=== PATIENT | female | born 1945 | race Caucasian/White ===

== ENCOUNTER 2021-05-21 09:00 | Inpatient (IN) | payer MEDICARE, SELFPAY ==
[2021-05-21] VITALS (8 sets, daily range): BP systolic 139–169; BP diastolic 62–128; PULSE 72–105; RESP 18; TEMP 36.4–37.2; O2SAT 94–99; BMI 52.2; BMI 51.5
--- NOTE | 2021-05-21 09:16 | ED.VIS.GI ---
HPI HPI - GI History of Present Illness Chief Complaint: Abd Pain Detail of Chief Complaint: Abdominal pain for several days Informant: patient Nausea/Vomiting/Emesis GI Symptom: Negative for Nausea and Vomiting Narrative Narrative: Patient presents to the emergency department with complaint of abdominal pain that she has had for several days. Patient describes upper abdomen pain. She denies vomiting or diarrhea. Have a bladder prolapse or uterine prolapse however the nurse did not evaluate the situation. Patient is a very poor historian but thinks she may have history of bladder prolapse. Patient has not had any fevers. She denies chest pain or shortness of breath. She denies dysuria, urgency, or frequency. [facility] Medical History (Updated 05/21/21 @ 13:[address] Wilma Rea, ) A-fib Atrial flutter Edema GERD (gastroesophageal reflux disease) Hyperlipemia Hypothyroid Obesity Sleep apnea Allergy/AdvReac Type Severity Reaction Status Date / Time amoxicillin [From Augmentin] Allergy NEEDS Verified 05/21/21 09:14 FOLLOW-UP atorvastatin [From Lipitor] Allergy NEEDS Verified 05/21/21 09:14 FOLLOW-UP azithromycin [From Zithromax] Allergy NEEDS Verified 05/21/21 09:14 FOLLOW-UP benzonatate Allergy NEEDS Verified 05/21/21 09:14 [From Tessalon Perles] FOLLOW-UP clavulanic acid Allergy NEEDS Verified 05/21/21 09:14 [From Augmentin] FOLLOW-UP simvastatin [From Zocor] Allergy NEEDS Verified 05/21/21 09:14 FOLLOW-UP Social History Smoking Status: Unknown if ever smoked ROS ROS ED Constitutional Constitutional ED: Reports systems reviewed and no addt'l complaints, except as documented; Denies body ache(s), change in weight or chills Eyes Eyes: Denies acute decrease in peripheral vision, change in vision, double vision or loss of vision ENT ENT ED: Reports none; Denies ear pain, lip swelling, loss taste/smell, neck pain, otalgia or sore throat Cardiovascular Cardiovascular: Reports none; Denies abdominal pain, chest pain with activity, leg edema, lightheadedness, palpitations, rapid heart rate or syncope Respiratory/Chest Respiratory/Chest: Reports none; Denies change in mental status, dry cough, dyspnea, hemoptysis, shortness of breath at rest or shortness of breath with exertion Gastrointestinal Gastrointestinal: Reports none and abdominal pain; Denies change in stool character, diarrhea, hematemesis, hematochezia, melena, rectal bleeding or vomiting Genitourinary Genitourinary ED: Reports none; Denies abdominal discomfort, anuria, dysuria, genital pain or polyuria Musculoskeletal Musculoskeletal: Reports none; Denies arthralgias, back pain, difficulty walking, extremity pain, muscle weakness or myalgias Integumentary Reports none; Denies abscess or rash Neurologic Neurologic: Reports none; Denies abnormal gait, confusion, focal weakness, frequent falls, headache(s), loss of vision, numbness, paresthesias, radicular pain, vertigo or weakness Psychiatric Psychiatric: Reports systems reviewed and no addt'l complaints, except as documented and none; Denies behavioral changes, confusion, difficulty concentrating, hallucinations, suicidal ideation, tactile hallucinations or visual hallucinations Endocrine Endocrinology: Denies none, cold intolerance, excessive sweating, fatigue or heat intolerance Hematologic/Lymphatic Hematologic/Lymphatic: Reports none; Denies anemia, easy bleeding or easy bruising Allergic/Immunologic Allergic/Immunologic ED: Denies as per HPI, none, lip swelling, mouth swelling, throat swelling, tongue swelling or hives EXAM Physical Exam Const Vital Signs: 05/21/21 09:02 05/21/21 11:46 05/21/21 13:11 Temperature 97.5 F L Temperature Source Oral Pulse Rate 105 H Respiratory Rate 18 Blood Pressure 139/66 H 150/82 H 154/98 H Blood Pressure Mean 90 104 116 Pulse Ox 99 Oxygen Delivery Method Room Air Room Air Positive well nourished and well developed General Appearance ED: well developed and NAD HEENT Reports TM's clear and moist mucous membranes normocephalic and atraumatic; Negative for trauma or tenderness Tympanic Membrane ED: Yes TM's clear Eyes PERRL and EOMs intact bilaterally General Eye ED: Negative for pale conjunctiva or scleral icterus Neck no lymphadenopathy, supple and no JVD General: Negative for tenderness Chest Wall inspection of chest normal and palpation of chest normal Chest: Negative for tenderness Resp normal respiratory effort and clear to auscultation bilaterally Effort and Inspection: Negative for respiratory distress or pain with movement Auscultation: Negative for rhonchi, wheezes or diminished lung sounds Cardio regular rate, regular rhythm, S1 normal heart sound, S2 normal heart sound and no murmurs Peripheral Pulses: pulses 2+ throughout GI normal to inspection, nondistended, normoactive bowel sounds, soft to palpation, non-distended and no masses GI Narrative: Patient morbidly obese with large body habitus. She has tenderness to palpation over the epigastric region and right upper quadrant with guarding. She has a positive Varma sign. There is no rebound or rigidity noted. No tenderness over the lower abdomen noted. Back/Spine no CVA tenderness and no thoracic nor lumbar tenderness Extremity normal to inspection General Extremety ED: Negative for edema General Extremity: Negative for edema Neuro oriented x3, CN's II-XII intact bilaterally, no sensory deficits noted and gait normal Sensorium / Orientation: awake, alert, oriented to person, oriented to place and oriented to time Motor Exam: strength 5/5 throughout and strength abnormal Psych mental status grossly normal Skin no rashes or lesions noted and no wounds MDM MDM MDM Narrative Medical decision making narrative: IV line established on arrival. Patient was medicated morphine and Zofran. Labs were unremarkable. CT scan of the abdomen pelvis with IV and p.o. contrast showed a small bowel obstruction with questionable intussusception. I discussed case with general surgeon on-call Dr. Rios who will admit patient and asked that we consult medicine for medical management. I ordered NG to low intermittent suction. Discussed case with hospitalist who will see patient for medical management. Lab Data Attestation: I reviewed the patient's lab results. Labs: Laboratory Results - last 24 hr 05/21/21 05/21/21 05/21/21 09:50 09:50 10:40 WBC 9.7 RBC 4.36 Hgb 13.6 Hct 43.2 MCV 99.1 H MCH 31.2 MCHC 31.5 L RDW Std Deviation 49.0 H RDW Coeff of Cally 13.3 Plt Count 185 MPV 10.0 Immature Gran % (Auto) 0.400 Neut % (Auto) 86.3 H Lymph % (Auto) 8.1 L [place] % (Auto) 4.5 Eos % (Auto) 0.5 Baso % (Auto) 0.2 Absolute Neuts (auto) 8.3 H Absolute Lymphs (auto) 0.78 L Nucleated RBC % 0 Sodium 140 Potassium 3.9 Chloride 109 H Carbon Dioxide 22.0 Anion Gap 9 BUN 16 Creatinine 0.93 Estim Creat Clear Calc 38.12 Est GFR (MDRD) Af Amer 76 Est GFR (MDRD) Non-Af 63 BUN/Creatinine Ratio 17.2 Glucose 129 H Lactic Acid Cancelled Calcium 9.3 Total Bilirubin 0.80 AST 16 ALT 15 Alkaline Phosphatase 114 Total Protein 7.2 Albumin 3.2 Globulin 4.0 Albumin/Globulin Ratio 0.8 L Lipase 60 L Urine Color Urine Clarity Urine pH Ur Specific [place] Urine Protein Urine Glucose (UA) Urine Ketones Urine Occult Blood Urine Nitrite Urine Bilirubin Urine Urobilinogen Ur Leukocyte Esterase Urine RBC Urine WBC Ur Squamous Epith Cells Urine Bacteria Urine Mucus 05/21/21 05/21/21 11:10 11:25 WBC RBC Hgb Hct MCV MCH MCHC RDW Std Deviation RDW Coeff of Cally Plt Count MPV Immature Gran % (Auto) Neut % (Auto) Lymph % (Auto) [place] % (Auto) Eos % (Auto) Baso % (Auto) Absolute Neuts (auto) Absolute Lymphs (auto) Nucleated RBC % Sodium Potassium Chloride Carbon Dioxide Anion Gap BUN Creatinine Estim Creat Clear Calc Est GFR (MDRD) Af Amer Est GFR (MDRD) Non-Af BUN/Creatinine Ratio Glucose Lactic Acid 1.5 Calcium Total Bilirubin AST ALT Alkaline Phosphatase Total Protein Albumin Globulin Albumin/Globulin Ratio Lipase Urine Color Yellow Urine Clarity Sl. Cloudy Urine pH 7.0 Ur Specific [place] 1.015 Urine Protein 30 H Urine Glucose (UA) Normal Urine Ketones 50 H Urine Occult Blood Negative Urine Nitrite Negative Urine Bilirubin Negative Urine Urobilinogen 1 H Ur Leukocyte Esterase 25 H Urine RBC 0 SEEN Urine WBC 0-5 SEEN Ur Squamous Epith Cells 0-5 SEEN Urine Bacteria 0 SEEN Urine Mucus 0 SEEN Radiography Diagnostic Testing: Clinical Impression(s) from Imaging Studies Abdomen/Pelvis CT 05/21/21 12:45 IMPRESSION: Small bowel obstruction with the transition point in the mid jejunum. Questionable intussusception. Multiple small gallstones. Small amount of perihepatic fluid and fluid in the pelvis. Electronically Signed: Jewel Cooper MD at 13:18 EST , Service support , Discharge Plan Triage Chief Complaint: Abd Pain ED Provider: Wilma Rea Dx/Rx/DC Orders Clinical Impression: Complete small bowel obstruction, Abdominal pain Primary Care Provider: Aldair Blankenship Referrals: Aldair Blankenship DO [Primary Care Provider] - Disposition Disposition: Acute Care Hospital [facility]
[2021-05-21] MEDS: Ondansetron 4 MG/2 ML Vial IV ×2 (09:51→15:19)
[2021-05-21] MEDS: Morphine 4 MG/ML Syringe IV ×3 (09:52→14:19)
[2021-05-21] MEDS: 0.9% Normal Saline 1,000 ML 125 ML IV ×3 (09:52→23:10)
[2021-05-21 10:19] LABS: Absolute Lymphocyte Count 0.78 X10^3/uL (0.83-4.51); Absolute Neutrophil Count 8.3 X10^3/uL (2.0-7.7); Basophil# 0.02 X10^3/uL; Basophil% 0.2 % (0-1); Eosinophil# 0.05 X10^3/uL; Eosinophils% 0.5 % (0-5); Hematocrit 43.2 % (37-47); Hemoglobin 13.6 g/dL (12.0-15.0); Lymphocyte # 0.78 X10^3/ul (0.83-4.51); Lymphocyte % 8.1 % (19-41); Mean Corp Hgb Conc 31.5 g/dL (32-36); Mean Corpuscular Hgb 31.2 pg (27.0-32.0); Mean Corpuscular Volume 99.1 fL (81-99); Monocyte# 0.43 X10^3/uL; Monocyte% 4.5 % (0-10); NRBC Flagged by Analyzer 0 % (0-5); Neutrophil # 8.34 X10^3/uL (2.7-7.7); Neutrophil % 86.3 % (47-70); Platelet Count 185 K/mm3 (150-450); RBC Distribution Width CV 13.3 % (11.6-14.6); Red Blood Count 4.36 M/mm3 (4.2-5.4); White Blood Count 9.7 K/mm3 (4.4-11.0)
[2021-05-21 10:44] LABS: ALB/GLOB Ratio 0.8 RATIO (0.9-2.4); AST(SGOT) 16 U/L (15-37); Alanine Aminotransfer ALT/SGPT 15 U/L (13-56); Albumin, Serum 3.2 g/dL (3.2-5.0); Alkaline Phosphatase 114 U/L (45-117); Anion Gap 9 (5-15); BUN 16 mg/dL (7-18); BUN/Creat Ratio 17.2 RATIO (10-20); Calcium,Total 9.3 mg/dL (8.5-10.1); Chloride 109 mmol/L (98-107); Creatinine, Serum 0.93 mg/dL (0.55-1.02); EST Glomerular Filtration Rate 63 mL/min (>60); Est Glom Filt Rate - Afr Amer 76 mL/min (>60); Estimated Creatinine Clearance 38.12 ml/min; Glucose 129 mg/dL (74-106); Lipase 60 U/L (73-393); Potassium 3.9 mmol/L (3.5-5.1); Protein, Total 7.2 g/dL (6.4-8.2); Sodium Level 140 mmol/L (136-145)
[2021-05-21 11:16] LABS: Bacteria 0 SEEN /hpf (None Seen); Mucous, Urine 0 SEEN /hpf (<or=2+); Red Blood Cells-Urine 0 SEEN /hpf (0-5)
[2021-05-21 11:29] LABS: Color, Urine Yellow (Yellow); Glucose, Dipstick Normal (Normal); Ketone-Dipstick 50 mg/dl (Negative); Leukocyte Esterase-Dipstick 25 /ul (Negative); Nitrite-Dipstick Negative (Negative); Occult Blood-Urine Negative /ul (Negative); Protein-Dipstick 30 mg/dl (Negative); Specific Gravity, Urine 1.015 (1.002-1.030); Urine Bilirubin Dipstick Negative (Negative); Urine Clarity Sl. Cloudy (Clear); Urine Urobilinogen 1 mg/dl (Normal)
[2021-05-21 11:35] LABS: Squamous Epithelial Cells - UA 0-5 SEEN /hpf (5-10); White Blood Cells 0-5 SEEN /hpf (0-5)
[2021-05-21 11:53] LABS: Lactic Acid 1.5 mmol/L (0.4-1.9)
--- NOTE | 2021-05-21 12:45 | CT_ITS ---
STUDY: CT ABDOMEN AND PELVIS WITH CONTRAST REASON FOR EXAM: Female, 76 years old. Abdominal pain RADIATION DOSAGE (If Supplied By Facility): CTDIvol = ( 20.55 ) mGy, DLP = ( 1623.37 ) mGycm TECHNIQUE: Transaxial images were obtained from the dome of the diaphragm to the symphysis pubis with oral contrast. Oral and amp; IV Gastrografin and amp; 100mL Isovue-300 was administered. Sagittal and coronal images were reconstructed. Individualized dose optimization techniques were used for this CT. COMPARISON: None. FINDINGS: Mild degree of increased linear markings at the lung bases suggestive of atelectasis. Coronary artery calcification. Normal liver. Small amount of the perihepatic fluid. There are multiple small gallstones. Small cystic nodules are seen in the anterior superior aspect of the spleen. There is diffuse atrophy of the pancreas. Normal bilateral adrenal glands. Normal right kidney. Normal left kidney. There is a small hiatal hernia. There are dilated loops of the small intestine with a non-distended colon consistent with a small bowel obstruction. The transition point is at the level of the mid jejunal level. Questionable intussusception at that site. There are multiple colonic diverticula consistent with diverticulosis. The appendix is visualized and appears normal. There is diffuse atherosclerotic calcification of the abdominal aorta and its major visceral branches, without a demonstrated aneurysm. Normal inferior vena cava. Normal retroperitoneum. Normal urinary bladder. There is a moderate-sized umbilical hernia containing fat. No bowel is seen within the herniation. There are diffuse degenerative changes of the visualized lumbar spine. CT/Abdomen/Pelvis WITH Contrast IMPRESSION: Small bowel obstruction with the transition point in the mid jejunum. Questionable intussusception. Multiple small gallstones. Small amount of perihepatic fluid and fluid in the pelvis. Electronically Signed: Jewel Cooper MD at 13:18 EST , Service support ,
--- NOTE | 2021-05-21 14:10 | NURSING ---
MED SURG [facility], ABD PAIN
--- NOTE | 2021-05-21 14:15 | RAD_ITS ---
STUDY: X-RAY - ABDOMEN/PELVIS REASON FOR EXAM: Female, 76 years old. NG Insertion TECHNIQUE: AP supine and decubitus views of the abdomen and pelvis. COMPARISON: None. FINDINGS: The nasogastric tube is coiled in the esophagus. RAD/Abdomen Single View (Portable) IMPRESSION: The nasogastric tube is coiled in the esophagus. Electronically Signed: Jewel Cooper MD at 14:45 EST , Service support ,
--- NOTE | 2021-05-21 14:40 | RAD_ITS ---
STUDY: X-RAY CHEST REASON FOR EXAM: Female, 76 years old. NG PLACEMENT TECHNIQUE: Single AP portable view of the chest. COMPARISON: Comparison is made with prior study done earlier today. FINDINGS: The tip of the nasogastric tube is below the left hemidiaphragm. Mild degree of increased markings at the lung bases suggestive of bibasilar atelectasis. There is no demonstrated pleural abnormality. Normal size heart. Normal mediastinum and leo. Normal visualized pulmonary arteries. There is atherosclerotic calcification of the aortic arch with tortuosity. There are diffuse degenerative changes of the visualized thoracic spine. Normal visualized ribs, clavicles, and shoulders. There is no demonstrated abnormality of the visualized soft tissue structures of the upper abdomen. RAD/Chest 1 View (Portable) IMPRESSION: The tip of the nasogastric tube is below the left hemidiaphragm. Electronically Signed: Jewel Cooper MD at 14:56 EST , Service support ,
--- NOTE | 2021-05-21 14:45 | RAD_ITS ---
STUDY: X-RAY - ABDOMEN/PELVIS REASON FOR EXAM: Female, 76 years old. NG PLACEMENT TECHNIQUE: Single AP view of the abdomen / pelvis. COMPARISON: Comparison is made with prior study done earlier today. FINDINGS: The tip of the nasogastric tube is in the body of the stomach. RAD/Abdomen Single View (Portable) IMPRESSION: The tip of the nasogastric tube is in the body of the stomach. Electronically Signed: Jewel Cooper MD at 14:57 EST , Service support ,
--- NOTE | 2021-05-21 14:49 | ED.RN ---
THIS NURSE LEFT A MESSAGE FOR PT SON NAVARRO AT [phone]
--- NOTE | 2021-05-21 14:53 | PN.HOSP_ITS ---
Documented by User: Saima Bean NP-Shukri 05/21/21 15:57 Subjective Subjective Patient seen and examined at the request of Dr. Rios for medical management. Patient admitted with a small bowel obstruction. Patient has a history of dementia and is unable to provide medical history. Patient transferred here from [facility] with incomplete med list. Objective Data Objective Data Vital Signs: Vital Signs Temp Pulse Resp BP Pulse Ox 98.9 F 72 18 158/62 H 94 05/21/21 14:14 05/21/21 14:14 05/21/21 14:14 05/21/21 14:14 05/21/21 14:14 Oxygen Delivery Method Room Air Weight: 267 lb 6.731 oz Body Mass Index (BMI) 52.2 Lab / Micro Data Result Diagrams: 05/21/21 09:50 05/21/21 09:50 Labs: Laboratory Results - last 24 hr 05/21/21 09:50: WBC 9.7, RBC 4.36, Hgb 13.6, Hct 43.2, MCV 99.1 H, MCH 31.2, MCHC 31.5 L, RDW Std Deviation 49.0 H, RDW Coeff of Cally 13.3, Plt Count 185, MPV 10.0, Immature Gran % (Auto) 0.400, Neut % (Auto) 86.3 H, Lymph % (Auto) 8.1 L, [place] % (Auto) 4.5, Eos % (Auto) 0.5, Baso % (Auto) 0.2, Absolute Neuts (auto) 8.3 H, Absolute Lymphs (auto) 0.78 L, Nucleated RBC % 0 05/21/21 09:50: Sodium 140, Potassium 3.9, Chloride 109 H, Carbon Dioxide 22.0, Anion Gap 9, BUN 16, Creatinine 0.93, Estim Creat Clear Calc 38.12, Est GFR (MDRD) Af Amer 76, Est GFR (MDRD) Non-Af 63, BUN/Creatinine Ratio 17.2, Glucose 129 H, Calcium 9.3, Total Bilirubin 0.80, AST 16, ALT 15, Alkaline Phosphatase 114, Total Protein 7.2, Albumin 3.2, Globulin 4.0, Albumin/Globulin Ratio 0.8 L, Lipase 60 L 05/21/21 10:40: Lactic Acid Cancelled 05/21/21 11:10: Urine Color Yellow, Urine Clarity Sl. Cloudy, Urine pH 7.0, Ur Specific [place] 1.015, Urine Protein 30 H, Urine Glucose (UA) Normal, Urine Ketones 50 H, Urine Occult Blood Negative, Urine Nitrite Negative, Urine Bilirubin Negative, Urine Urobilinogen 1 H, Ur Leukocyte Esterase 25 H, Urine RBC 0 SEEN, Urine WBC 0-5 SEEN, Ur Squamous Epith Cells 0-5 SEEN, Urine Bacteria 0 SEEN, Urine Mucus 0 SEEN 05/21/21 11:25: Lactic Acid 1.5 Radiography Diagnostic Testing: Radiology Impression Abdomen/Pelvis CT 05/21/21 12:45 IMPRESSION: Small bowel obstruction with the transition point in the mid jejunum. Questionable intussusception. Multiple small gallstones. Small amount of perihepatic fluid and fluid in the pelvis. Electronically Signed: Jewel Cooper MD at 13:18 EST , Service support , KUB X-Ray 05/21/21 14:15 IMPRESSION: The nasogastric tube is coiled in the esophagus. Electronically Signed: Jewel Cooper MD at 14:45 EST , Service support , Physical Exam Const alert and no apparent distress General Appearance: anxious Orientation / Consciousness: oriented to person and confused HEENT head/scalp atraumatic Head and Scalp: normocephalic Eyes conjunctivae normal and no scleral icterus Neck no lymphadenopathy and supple Resp normal respiratory effort, normal air movement and clear to auscultation bilaterally Effort and Inspection: able to speak in complete sentences and symmetric chest movement Cardio regular rate, regular rhythm, S1 normal heart sound and S2 normal heart sound GI non-distended GI Narrative: NG to left nares in place, draining Auscultation: hypoactive bowel sounds Palpation: tender RUQ Extremity normal to inspection, full ROM and no clubbing, cyanosis or edema Peripheral Pulses: Yes pulses 2+ throughout Skin no rashes or lesions noted, no wounds and skin turgor normal Neuro moves all extremities, no focal motor deficits and no sensory deficits noted Sensorium / Orientation: awake, alert and oriented to person Psych Mood & Affect: anxious Assessment & Plan Assessment/Plan (1) Complete small bowel obstruction: PLAN: 1. Complete small bowel obstruction -Being managed by Dr. Rios of general surgery -NG placed in ER, maintain -Labs unremarkable -Pain medication regimen ordered per surgery Patient is thought to have a history of atrial fibrillation, hypertension and hyperlipidemia however patient was sent from [facility] with incomplete medical records. [facility] called multiple times by myself as well as ER staff with no response. Patient has dementia and is unable to provide medical history or medication list at this time. Once we are aware of patient's medical history we can order appropriate medications IV until patient is able to resume p.o. intake. Surgical risk calculator will also be complete once medical history is completely obtained. DVT prophylaxis-SCDs This patient was seen by DREW Infante under the supervision of Dr. Kimbrough. Documented by User: Dr. Cain Kimbrough MD 05/21/21 16:25 Objective Data Lab / Micro Data Result Diagrams: 05/21/21 09:50 05/21/21 09:50 Charges/Coding Addendum Addendum: Dr. Kimbrough: I personally reviewed the chart and examined the patient, and agree with the above findings. 76-year-old female who lives in a assisted secondary to dementia presents to the hospital with abdominal pain. Unfortunately given her dementia she is unable to elaborate on this and were unable to gather any more history. Has had multiple attempts at contacting her assisted and we have been unable to reach her nurse. We were able to get an updated med list that demonstrates that she is on Plavix, will Lasix, since throwing, lisinopril, metoprolol, Coumadin indicating history of A. fib, possible cardiac stent. Given the fact that CT scan she appears to have a mid jejunal transition point with a small bowel obstruction, she will be n.p.o. We will gently hydrate her and can place her on IV metoprolol, once she is admitted, to control her heart rate but given the need for possible surgery will hold her anticoagulation. Visit Charges Inpatient E&M: 50944 Subs Hosp L3
--- NOTE | 2021-05-21 15:37 | ED.RN ---
pt. son mary anne calls in updated on pt. condition and that she was being admitted. states sounds good ill call in, in the morning
--- NOTE | 2021-05-21 18:13 | HP.PCM_ITS ---
HPI - General General Date of Admission: 05/21/21 HPI Rigoberto ARGUETA, is a 76 F who presents To [facility] from [facility] with complaints of abdominal pain. History is extremely limited given that the patient has underlying dementia. Unfortunately there are no contacts listed to seek additional information. ER notable findings include normal white count but presence of a left shift. Lactic acid is within normal limits. CT imaging shows evidence of a small bowel obstruction with a transition zone in the mid jejunum. There is also possible suggestion of small bowel intussusception. [facility] Medical History (Updated 05/21/21 @ 18:[address] Ramy Rios MD) A-fib Atrial flutter Edema GERD (gastroesophageal reflux disease) Hyperlipemia Hypothyroid Obesity Sleep apnea Home Medications acetaminophen 1,000 mg PO TID 05/21/21 [History Last Taken 05/21/21] clopidogrel [Plavix] 75 mg PO DAILY 05/21/21 [History Last Taken 05/21/21] fluticasone propionate [Flonase Allergy Relief] 2 spray INTRANASAL DAILY 05/21/21 [History Last Taken 05/21/21] furosemide 20 mg PO DAILY 05/21/21 [History Last Taken 05/21/21] levothyroxine 100 mcg PO DAILY 05/21/21 [History Last Taken 05/21/21] lisinopril 10 mg PO DAILY 05/21/21 [History Last Taken 05/21/21] melatonin 3 mg PO QHS 05/21/21 [History Last Taken 05/20/21] memantine 10 mg PO BID 05/21/21 [History Last Taken 05/21/21] metoprolol tartrate 75 mg PO BID 05/21/21 [History Last Taken 05/21/21] mirabegron [Myrbetriq] 25 mg PO DAILY 05/21/21 [History Last Taken 05/21/21] potassium chloride 10 meq PO BID 05/21/21 [History Last Taken 05/21/21] warfarin [Coumadin] 2.5 mg PO QHS 05/21/21 [History Last Taken 05/20/21] Allergy/AdvReac Type Severity Reaction Status Date / Time amoxicillin [From Augmentin] Allergy NEEDS Verified 05/21/21 09:14 FOLLOW-UP atorvastatin [From Lipitor] Allergy NEEDS Verified 05/21/21 09:14 FOLLOW-UP azithromycin [From Zithromax] Allergy NEEDS Verified 05/21/21 09:14 FOLLOW-UP benzonatate Allergy NEEDS Verified 05/21/21 09:14 [From Tessalon Perles] FOLLOW-UP clavulanic acid Allergy NEEDS Verified 05/21/21 09:14 [From Augmentin] FOLLOW-UP simvastatin [From Zocor] Allergy NEEDS Verified 05/21/21 09:14 FOLLOW-UP Social History Smoking Status: Unknown if ever smoked Vital Signs Vital Signs Vital Signs: 05/21/21 09:02 05/21/21 11:46 05/21/21 13:11 Temperature 97.5 F L Temperature Source Oral Pulse Rate 105 H Respiratory Rate 18 Blood Pressure 139/66 H 150/82 H 154/98 H Blood Pressure Mean 90 104 116 Pulse Ox 99 Oxygen Delivery Method Room Air Room Air 05/21/21 13:58 05/21/21 14:14 05/21/21 15:19 Temperature 98.9 F 98.9 F Temperature Source Temporal Temporal Pulse Rate 76 72 Respiratory Rate 18 18 Blood Pressure 155/98 H 158/62 H 145/95 H Blood Pressure Mean 117 94 111 Pulse Ox 97 94 97 Oxygen Delivery Method Room Air Room Air Room Air Weight Weight: 267 lb 6.731 oz Body Mass Index (BMI) 52.2 Physical Exam Const alert Constitutional Narrative: In mild distress from nasogastric tube and abdominal discomfort. HEENT HEENT Narrative: Nasogastric tube inserted in the left nare with mild oozing around the tube. GI GI Narrative: Morbidly obese. Nondistended. Infraumbilical midline laparotomy incision scar. No evidence of hernia. Patient's abdomen is soft and only minimally tender with deep palpation. Nasogastric tube stomach contents and appears to be functioning appropriately with suction set to low intermittent wall suction. Results Lab / Micro Data Result Diagrams: 05/21/21 09:50 05/21/21 09:50 Labs: Laboratory Results - last 24 hr 05/21/21 09:50: WBC 9.7, RBC 4.36, Hgb 13.6, Hct 43.2, MCV 99.1 H, MCH 31.2, MCHC 31.5 L, RDW Std Deviation 49.0 H, RDW Coeff of Cally 13.3, Plt Count 185, MPV 10.0, Immature Gran % (Auto) 0.400, Neut % (Auto) 86.3 H, Lymph % (Auto) 8.1 L, [place] % (Auto) 4.5, Eos % (Auto) 0.5, Baso % (Auto) 0.2, Absolute Neuts (auto) 8.3 H, Absolute Lymphs (auto) 0.78 L, Nucleated RBC % 0 05/21/21 09:50: Sodium 140, Potassium 3.9, Chloride 109 H, Carbon Dioxide 22.0, Anion Gap 9, BUN 16, Creatinine 0.93, Estim Creat Clear Calc 38.12, Est GFR (MDRD) Af Amer 76, Est GFR (MDRD) Non-Af 63, BUN/Creatinine Ratio 17.2, Glucose 129 H, Calcium 9.3, Total Bilirubin 0.80, AST 16, ALT 15, Alkaline Phosphatase 114, Total Protein 7.2, Albumin 3.2, Globulin 4.0, Albumin/Globulin Ratio 0.8 L, Lipase 60 L 05/21/21 10:40: Lactic Acid Cancelled 05/21/21 11:10: Urine Color Yellow, Urine Clarity Sl. Cloudy, Urine pH 7.0, Ur Specific [place] 1.015, Urine Protein 30 H, Urine Glucose (UA) Normal, Urine Ketones 50 H, Urine Occult Blood Negative, Urine Nitrite Negative, Urine Bilirubin Negative, Urine Urobilinogen 1 H, Ur Leukocyte Esterase 25 H, Urine RBC 0 SEEN, Urine WBC 0-5 SEEN, Ur Squamous Epith Cells 0-5 SEEN, Urine Bacteria 0 SEEN, Urine Mucus 0 SEEN 05/21/21 11:25: Lactic Acid 1.5 Radiology Impression Abdomen/Pelvis CT 05/21/21 12:45 IMPRESSION: Small bowel obstruction with the transition point in the mid jejunum. Questionable intussusception. Multiple small gallstones. Small amount of perihepatic fluid and fluid in the pelvis. Electronically Signed: Jewel Cooper MD at 13:18 EST , Service support , KUB X-Ray 05/21/21 14:15 IMPRESSION: The nasogastric tube is coiled in the esophagus. Electronically Signed: Jewel Cooper MD at 14:45 EST , Service support , Chest X-Ray 05/21/21 14:40 IMPRESSION: The tip of the nasogastric tube is below the left hemidiaphragm. Electronically Signed: Jewel Cooper MD at 14:56 EST , Service support , KUB X-Ray 05/21/21 14:45 IMPRESSION: The tip of the nasogastric tube is in the body of the stomach. Electronically Signed: Jewel Cooper MD at 14:57 EST , Service support , Assessment & Plan Assessment/Plan (1) Small bowel obstruction: PLAN: A 76-year-old female with complex medical history who presents from a nursing facility for abdominal pain. History is severely limited by her dementia. CT is concerning for a small bowel obstruction with relative transition zone in the mid jejunum. Nasogastric tube has been placed with output of gastric contents. Patient's exam is generally reassuring with only mild tenderness to palpation. Aside from a left shift, her laboratory values were also within normal limits. Considering these labs and her exam, I find no cause to pursue emergent operative intervention. I would like to pursue a conservative course at this point and obtain more information if possible. It is my understanding patient only receives her care from [facility], but was unable to be seen there due to diversion. Patient will be admitted to me with medicine consulting for her comorbidities. Neuro: As needed IV analgesics Pulm/CV: Patient should be kept on aspiration precautions with head of bed elevated at least 45 degrees given nasogastric tube and inability to speak for herself. Monitor closely for history of sleep apnea. Telemetry for history of A. fib. FEN/GI: Strict n.p.o. with nasogastric tube to low intermittent wall suction. Plan for a.m. KUB and possible small bowel follow-through tomorrow. Heme/ID: Trend daily labs Endo: No current issues but will have to monitor blood sugars while n.p.o. Proph: SCDs Dispo: Admit to inpatient Charges/Coding Visit Charges Inpatient E&M: 67205 Init Hosp L2
--- NOTE | 2021-05-21 19:33 | NURSING ---
Patient arrived by bed at 1920, moved to bed and assessed.
--- NOTE | 2021-05-21 20:13 | PCS.PANDOC ---
PANDEMIC DOCUMENTATION INITIATED: Date: 05/21/2021 Time:
[2021-05-21] MEDS: HYDROmorphone 0.5 MG/0.5 ML SYRINGE IV (20:57)
[2021-05-21] MEDS: 0.9% Saline Lock 10 ML Syringe IV (20:57)
--- NOTE | 2021-05-21 22:34 | NURSING ---
spoke with [facility] and pt has not received her flu shot yet she was on list to get it, has been ordered for pt here.
[2021-05-21] MEDS: Nystatin Powder 15gm Bottle 1 APPLIC TOPICAL (23:10)
[2021-05-21] MEDS: Menthol/Lanolin/Calamine/Znox 113 GM Tube 1 APPLIC TOPICAL (23:11)
[2021-05-22] VITALS (34 sets, daily range): BP systolic 117–175; BP diastolic 62–104; PULSE 108–150; RESP 14–27; TEMP 36.9–37.3; O2SAT 93–100
[2021-05-22 06:21] LABS: Absolute Lymphocyte Count 0.57 X10^3/uL (0.83-4.51); Absolute Neutrophil Count 9.7 X10^3/uL (2.0-7.7); Basophil# 0.02 X10^3/uL; Basophil% 0.2 % (0-1); Hematocrit 45.7 % (37-47); Hemoglobin 15.2 g/dL (12.0-15.0); Lymphocyte # 0.57 X10^3/ul (0.83-4.51); Lymphocyte % 5.3 % (19-41); Mean Corp Hgb Conc 33.3 g/dL (32-36); Mean Corpuscular Volume 96.2 fL (81-99); Mean Platelet Vol. 10.2 fl (6.2-12.0); Monocyte# 0.52 X10^3/uL; Monocyte% 4.8 % (0-10); NRBC Flagged by Analyzer 0 % (0-5); Neutrophil # 9.65 X10^3/uL (2.7-7.7); Neutrophil % 89.3 % (47-70); POSITIVE DIFFERENTIAL YES; Platelet Count 236 K/mm3 (150-450); RBC Distribution Width CV 13.7 % (11.6-14.6); RBC Distribution Width SD 48.7 fl (35.1-43.9); Red Blood Count 4.75 M/mm3 (4.2-5.4); White Blood Count 10.8 K/mm3 (4.4-11.0)
[2021-05-22 06:29] LABS: Differential Indicated SCAN CRITERIA MET
[2021-05-22 06:34] LABS: International Normalized Ratio 1.9; Prothrombin Time (Protime)PT. 21.1 SECONDS (11.7-14.9)
[2021-05-22 06:41] LABS: Differential Comment SCANNED
[2021-05-22 06:51] LABS: Anion Gap 9 (5-15); BUN 13 mg/dL (7-18); BUN/Creat Ratio 14.8 RATIO (10-20); Calcium,Total 9.1 mg/dL (8.5-10.1); Chloride 111 mmol/L (98-107); Creatinine, Serum 0.88 mg/dL (0.55-1.02); EST Glomerular Filtration Rate 67 mL/min (>60); Est Glom Filt Rate - Afr Amer 81 mL/min (>60); Estimated Creatinine Clearance 105.36 ml/min; Glucose 161 mg/dL (74-106); Potassium 3.8 mmol/L (3.5-5.1); Sodium Level 142 mmol/L (136-145)
--- NOTE | 2021-05-22 07:00 | RAD_ITS ---
STUDY: X-RAY - ABDOMEN/PELVIS REASON FOR EXAM: Female, 76 years old. Follow-up small bowel obstruction TECHNIQUE: Single AP view of the abdomen / pelvis. COMPARISON: Comparison is made with prior study of 05/21/2021. FINDINGS: A nasogastric tube is seen with the tip in the stomach. There is less small bowel dilatation at this time. Gas and fecal material are seen in the colon. The visualized liver, spleen and kidneys are grossly normal in size and morphology. Normal soft tissue structures. There are diffuse degenerative changes of the visualized lumbar spine. RAD/Abdomen Single View IMPRESSION: There is less small bowel dilatation at this time. Gas and fecal material is seen in the colon. Electronically Signed: Jewel Cooper MD at 11:58 EST , Service support ,
[2021-05-22] MEDS: 0.9% Normal Saline 1,000 ML 125 ML IV ×3 (07:02→21:05)
--- NOTE | 2021-05-22 07:41 | EKG12_ITS ---
Test Reason : TACHYCARDIA Blood Pressure : / mmHG Vent. Rate : 134 BPM Atrial Rate : 138 BPM P-R Int : 000 ms QRS Dur : 080 ms QT Int : 318 ms P-R-T Axes : 000 003 231 degrees QTc Int : 474 ms Atrial fibrillation with premature ventricular or aberrantly conducted complexes Abnormal ECG No previous ECGs available Confirmed by SOFIE TIRADO, USHA ([id number]), manuscript editor BRISSA HUSSEIN ([id number]) on 05/23/2021 7:55:15 AM Referred By: GRAHAM Confirmed By:USHA CARRIZALES MD
--- NOTE | 2021-05-22 07:53 | PCM.PN.SRG ---
Subjective Subjective Patient seen and examined during AM rounds. She is found sleeping when I arrived room. However when she awakened she denies any significant discomfort. She states she is resting well. She denies any gas or bowel movement overnight. Nursing reports they did have to administer 1 dose of as needed pain medication overnight but otherwise there were no acute events. Patient reevaluated in the p.m. appears to be completely asymptomatic from her tachyarrhythmia. She initially had some dysfunction of her nasogastric tube but once this was corrected she is without complaints and just seems rather lethargic today. Objective Data Objective Data Vital Signs: Vital Signs Temp Pulse Resp BP Pulse Ox 99.1 F 140 H 16 145/69 H 94 05/22/21 07:43 05/22/21 07:43 05/22/21 07:43 05/22/21 07:43 05/22/21 07:43 Oxygen Delivery Method Room Air Weight: 262 lb 5.601 oz Body Mass Index (BMI) 51.5 Intake & Output: Intake and Output for Last 24 Hours 05/20/21 05/21/21 05/22/21 23:59 23:59 23:59 Intake Total 1514.58 / 1514.58 993.33 / 993.33 Output Total 150 / 150 Balance 1514.58 / 1514.58 843.33 / 843.33 Lab / Micro Data Result Diagrams: 05/22/21 05:25 05/22/21 05:25 Labs: Laboratory Results - last 24 hr 05/21/21 09:50: WBC 9.7, RBC 4.36, Hgb 13.6, Hct 43.2, MCV 99.1 H, MCH 31.2, MCHC 31.5 L, RDW Std Deviation 49.0 H, RDW Coeff of Cally 13.3, Plt Count 185, MPV 10.0, Immature Gran % (Auto) 0.400, Neut % (Auto) 86.3 H, Lymph % (Auto) 8.1 L, [place] % (Auto) 4.5, Eos % (Auto) 0.5, Baso % (Auto) 0.2, Absolute Neuts (auto) 8.3 H, Absolute Lymphs (auto) 0.78 L, Nucleated RBC % 0 05/21/21 09:50: Sodium 140, Potassium 3.9, Chloride 109 H, Carbon Dioxide 22.0, Anion Gap 9, BUN 16, Creatinine 0.93, Estim Creat Clear Calc 38.12, Est GFR (MDRD) Af Amer 76, Est GFR (MDRD) Non-Af 63, BUN/Creatinine Ratio 17.2, Glucose 129 H, Calcium 9.3, Total Bilirubin 0.80, AST 16, ALT 15, Alkaline Phosphatase 114, Total Protein 7.2, Albumin 3.2, Globulin 4.0, Albumin/Globulin Ratio 0.8 L, Lipase 60 L 05/21/21 10:40: Lactic Acid Cancelled 05/21/21 11:10: Urine Color Yellow, Urine Clarity Sl. Cloudy, Urine pH 7.0, Ur Specific [place] 1.015, Urine Protein 30 H, Urine Glucose (UA) Normal, Urine Ketones 50 H, Urine Occult Blood Negative, Urine Nitrite Negative, Urine Bilirubin Negative, Urine Urobilinogen 1 H, Ur Leukocyte Esterase 25 H, Urine RBC 0 SEEN, Urine WBC 0-5 SEEN, Ur Squamous Epith Cells 0-5 SEEN, Urine Bacteria 0 SEEN, Urine Mucus 0 SEEN 05/21/21 11:25: Lactic Acid 1.5 05/22/21 05:25: PT 21.1 H, INR 1.9 05/22/21 05:25: WBC 10.8, RBC 4.75, Hgb 15.2 H, Hct 45.7, MCV 96.2, MCH 32.0, MCHC 33.3 D, RDW Std Deviation 48.7 H, RDW Coeff of Cally 13.7, Plt Count 236, MPV 10.2, Immature Gran % (Auto) 0.400, Neut % (Auto) 89.3 H, Lymph % (Auto) 5.3 L, [place] % (Auto) 4.8, Eos % (Auto) 0.0, Baso % (Auto) 0.2, Absolute Neuts (auto) 9.7 H, Absolute Lymphs (auto) 0.57 L, Nucleated RBC % 0, Differential Comment SCANNED 05/22/21 05:25: Sodium 142, Potassium 3.8, Chloride 111 H, Carbon Dioxide 22.0, Anion Gap 9, BUN 13, Creatinine 0.88, Estim Creat Clear Calc 105.36, Est GFR (MDRD) Af Amer 81, Est GFR (MDRD) Non-Af 67, BUN/Creatinine Ratio 14.8, Glucose 161 H, Calcium 9.1 Radiography Diagnostic Testing: Radiology Impression Abdomen/Pelvis CT 05/21/21 12:45 IMPRESSION: Small bowel obstruction with the transition point in the mid jejunum. Questionable intussusception. Multiple small gallstones. Small amount of perihepatic fluid and fluid in the pelvis. Electronically Signed: Jewel Cooper MD at 13:18 EST , Service support , KUB X-Ray 05/21/21 14:15 IMPRESSION: The nasogastric tube is coiled in the esophagus. Electronically Signed: Jewel Cooper MD at 14:45 EST , Service support , Chest X-Ray 05/21/21 14:40 IMPRESSION: The tip of the nasogastric tube is below the left hemidiaphragm. Electronically Signed: Jewel Cooper MD at 14:56 EST , Service support , KUB X-Ray 05/21/21 14:45 IMPRESSION: The tip of the nasogastric tube is in the body of the stomach. Electronically Signed: Jewel Cooper MD at 14:57 EST , Service support , Physical Exam Const no apparent distress Constitutional Narrative: Fatigued GI GI Narrative: Nondistended, soft, minimally tender to palpation in the left upper quadrant and this is only on one exam Assessment & Plan Assessment/Plan (1) Small bowel obstruction: PLAN: A 76-year-old female with complex medical history who presents from a nursing facility for small bowel obstruction with possible transition in the mid jejunum. Nasogastric tube output was minimal overnight. Abdominal exam is improved with less tenderness. Patient's KUB is also improved and she has a nasogastric tube in good position with the side-port beneath the diaphragm. I had anticipated performing a small bowel follow-through with the patient, but she developed atrial fibrillation with rapid ventricular response and required transfer to the progressive care unit. There she has required escalation of first Cardizem now amiodarone to try to gain control of her heart rate. Fortunately her blood pressures have held and she appears completely asymptomatic from this arrhythmia. Still, with this cardiac instability and conferencing with the hospitalist service have elected to postpone the imaging study. In the meantime, I have talked at some length with the patient's son, next of kin, and medical power of insurance defense attorney. I shared with him the possible treatment decisions that may be upcoming and my reservations for pursuing an overly aggressive course in Ms. Earl's care. He expressed understanding of this and we will plan to touch base tomorrow with a clinical update. Neuro: As needed IV analgesics Pulm/CV: Patient should be kept on aspiration precautions with head of bed elevated at least 45 degrees given nasogastric tube and inability to speak for herself. Monitor closely for history of sleep apnea. Telemetry for history of A. fib. Hospitalist service managing patient's A. fib with RVR. FEN/GI: Strict n.p.o. with nasogastric tube to low intermittent wall suction. Plan, again, for a.m. KUB and possible small bowel follow-through tomorrow. Heme/ID: Trend daily labs Endo: No current issues but will have to monitor blood sugars while n.p.o. Proph: SCDs, hold anticoagulation Dispo: Admit to inpatient Charges/Coding Visit Charges Inpatient E&M: 19589 Subs Hosp L2
--- NOTE | 2021-05-22 08:07 | NURSING ---
housekeeper and laundry assistant notified of Dr. Asencio's request to transfer patient to PCU. tachycardia in upper 140's afib.
--- NOTE | 2021-05-22 08:08 | NURSING ---
dr Asencio on unit after notified of heart rate of 150/a-fib this am
--- NOTE | 2021-05-22 08:13 | PCM.PN.HOSP ---
Subjective Subjective NGT in place. Denies abdominal pain. Not on telemetry, but was noted to have HR in 150s. Placed on tele and HR in 140s-150s. EKG showed afib with RVR. Pt denies chest pain/palpiations. Objective Data Objective Data Vital Signs: Vital Signs Temp Pulse Resp BP Pulse Ox 37.3 C 150 H 16 145/69 H 94 05/22/21 07:43 05/22/21 08:00 05/22/21 07:43 05/22/21 07:43 05/22/21 07:43 Oxygen Delivery Method Room Air Weight: 119 kg Body Mass Index (BMI) 51.5 Intake & Output: Intake and Output for Last 24 Hours 05/20/21 05/21/21 05/22/21 23:59 23:59 23:59 Intake Total 1514.58 / 1514.58 993.33 / 993.33 Output Total 150 / 150 Balance 1514.58 / 1514.58 843.33 / 843.33 Lab / Micro Data Result Diagrams: 05/22/21 05:25 05/22/21 05:25 Labs: Laboratory Results - last 24 hr 05/21/21 09:50: WBC 9.7, RBC 4.36, Hgb 13.6, Hct 43.2, MCV 99.1 H, MCH 31.2, MCHC 31.5 L, RDW Std Deviation 49.0 H, RDW Coeff of Cally 13.3, Plt Count 185, MPV 10.0, Immature Gran % (Auto) 0.400, Neut % (Auto) 86.3 H, Lymph % (Auto) 8.1 L, [place] % (Auto) 4.5, Eos % (Auto) 0.5, Baso % (Auto) 0.2, Absolute Neuts (auto) 8.3 H, Absolute Lymphs (auto) 0.78 L, Nucleated RBC % 0 05/21/21 09:50: Sodium 140, Potassium 3.9, Chloride 109 H, Carbon Dioxide 22.0, Anion Gap 9, BUN 16, Creatinine 0.93, Estim Creat Clear Calc 38.12, Est GFR (MDRD) Af Amer 76, Est GFR (MDRD) Non-Af 63, BUN/Creatinine Ratio 17.2, Glucose 129 H, Calcium 9.3, Total Bilirubin 0.80, AST 16, ALT 15, Alkaline Phosphatase 114, Total Protein 7.2, Albumin 3.2, Globulin 4.0, Albumin/Globulin Ratio 0.8 L, Lipase 60 L 05/21/21 10:40: Lactic Acid Cancelled 05/21/21 11:10: Urine Color Yellow, Urine Clarity Sl. Cloudy, Urine pH 7.0, Ur Specific [place] 1.015, Urine Protein 30 H, Urine Glucose (UA) Normal, Urine Ketones 50 H, Urine Occult Blood Negative, Urine Nitrite Negative, Urine Bilirubin Negative, Urine Urobilinogen 1 H, Ur Leukocyte Esterase 25 H, Urine RBC 0 SEEN, Urine WBC 0-5 SEEN, Ur Squamous Epith Cells 0-5 SEEN, Urine Bacteria 0 SEEN, Urine Mucus 0 SEEN 05/21/21 11:25: Lactic Acid 1.5 05/22/21 05:25: PT 21.1 H, INR 1.9 05/22/21 05:25: WBC 10.8, RBC 4.75, Hgb 15.2 H, Hct 45.7, MCV 96.2, MCH 32.0, MCHC 33.3 D, RDW Std Deviation 48.7 H, RDW Coeff of Cally 13.7, Plt Count 236, MPV 10.2, Immature Gran % (Auto) 0.400, Neut % (Auto) 89.3 H, Lymph % (Auto) 5.3 L, [place] % (Auto) 4.8, Eos % (Auto) 0.0, Baso % (Auto) 0.2, Absolute Neuts (auto) 9.7 H, Absolute Lymphs (auto) 0.57 L, Nucleated RBC % 0, Differential Comment SCANNED 05/22/21 05:25: Sodium 142, Potassium 3.8, Chloride 111 H, Carbon Dioxide 22.0, Anion Gap 9, BUN 13, Creatinine 0.88, Estim Creat Clear Calc 105.36, Est GFR (MDRD) Af Amer 81, Est GFR (MDRD) Non-Af 67, BUN/Creatinine Ratio 14.8, Glucose 161 H, Calcium 9.1 Radiography Diagnostic Testing: Radiology Impression Abdomen/Pelvis CT 05/21/21 12:45 IMPRESSION: Small bowel obstruction with the transition point in the mid jejunum. Questionable intussusception. Multiple small gallstones. Small amount of perihepatic fluid and fluid in the pelvis. Electronically Signed: Jewel Cooper MD at 13:18 EST , Service support , KUB X-Ray 05/21/21 14:15 IMPRESSION: The nasogastric tube is coiled in the esophagus. Electronically Signed: Jewel Cooper MD at 14:45 EST , Service support , Chest X-Ray 05/21/21 14:40 IMPRESSION: The tip of the nasogastric tube is below the left hemidiaphragm. Electronically Signed: Jewel Cooper MD at 14:56 EST , Service support , KUB X-Ray 05/21/21 14:45 IMPRESSION: The tip of the nasogastric tube is in the body of the stomach. Electronically Signed: Jewel Cooper MD at 14:57 EST , Service support , Physical Exam Const alert and no apparent distress Eyes PERRL Resp normal respiratory effort, no retractions, no use of accessory muscles and clear to auscultation bilaterally Cardio Cardio Narrative: irregularly irregular. tachycardic GI normal to inspection, nondistended, normoactive bowel sounds, non-tender and non-distended Extremity normal to inspection, full ROM and no clubbing, cyanosis or edema Skin no rashes or lesions noted Assessment & Plan Assessment/Plan (1) Small bowel obstruction: (2) Chronic atrial fibrillation with RVR: PLAN: 1. afib with RVR NPO, therefore has not received any metoprolol start dilt bolus and gtt check echo, no report in our system INR 1.9 may need to consider full dose enoxaparin pending INR TF to PCU 2. SBO given afib w RVR, a SBFT will need to be delayed until she is more HDS Dr. Rios notified NGT in place mgmt per general surgery NPO 3. Dementia stable at present high risk for sundowning memantine held 4. VTE prophylaxis: INR 1.9. DW her son, Terrence. Updated on current situation. He says the patient does not have a cardiac stent. He says is her MPOA. He requests her code status be Full Code. Charges/Coding Visit Charges Inpatient E&M: 09142 Subs Hosp L2
--- NOTE | 2021-05-22 08:41 | ECHOCS_ITS ---
Reason For Study: AFIV W/ RVR Procedure This was a 2D Doppler, Color Flow transthoracic echocardiogram. Exam performed in department. Left Ventricle Mild eccentric left ventricular hypertrophy. The estimated ejection fraction is 60-65 %. Right Ventricle Normal right ventricle. Normal systolic function. Atria The left atrium is moderately enlarged. Normal right atrium. Mitral Valve There is mild mitral annular calcification. Mild (1+) mitral valve insufficiency. Tricuspid Valve Normal tricuspid valve. Mild tricuspid valve insufficiency. Aortic Valve Mild diffuse aortic valve calcification. Pulmonic Valve The pulmonic valve is not well visualized. Great Vessels Normal aortic root. Pericardium/Pleural No pericardial effusion. Medication Diluted definity 3.0ml given slow IV push to enhance endocardial definition. MMode/2D Measurements & Calculations LVIDd: 3.6 cm IVSd: 1.2 cm Ao root diam: 3.6 cm LVIDs: 2.5 cm LVPWd: 1.2 cm RVDd: 3.4 cm FS: 30.6 % LAV(MOD-bp): 87.9 ml LVAd ap4: 30.5 cm2 SV(MOD-sp4): 72.3 ml LAV(MOD-bp) Indexed: 42.5 ml/m2 LVLd ap4: 7.5 cm LAV(MOD-sp2): 67.4 ml EDV(MOD-sp4): 102.0 ml LAV(MOD-sp4): 106.1 ml EDV(sp4-el): 105.5 ml LVAs ap4: 14.0 cm2 LVLs ap4: 5.7 cm ESV(MOD-sp4): 29.7 ml ESV(sp4-el): 29.1 ml EF(MOD-sp4): 70.9 % EF(sp4-el): 72.4 % SV(sp4-el): 76.3 ml LA A4 area: 30.7 cm2 LA dimension(2D): 5.1 cm RA A4 area: 21.4 cm2 Doppler Measurements & Calculations Ao V2 max: 196.8 cm/sec LV V1 max: 119.9 cm/sec TR max rah: 351.8 cm/sec Ao max P.5 mmHg LV V1 max P.8 mmHg TR max P.5 mmHg ECHO/Echo Complete W/ Contrast Interpretation Summary The estimated ejection fraction is 60-65 %. Contrast injection used for better Endocardial visualization No prior echo to compare. Ordering Physician: Mason Asencio Referring Physician: ANANDA MCCONNELL Performed By: Adore Cornejo, RDCS, RVT
[2021-05-22] MEDS: dilTIAZem 25 MG/5 ML Vial 20 MG IV BOLUS (09:37)
[2021-05-22 10:24] LABS: Troponin-I HS 8 pg/mL (3.0-54.0)
[2021-05-22] MEDS: Menthol/Lanolin/Calamine/Znox 113 GM Tube 1 APPLIC TOPICAL ×2 (10:59→19:41)
[2021-05-22] MEDS: Nystatin Powder 15gm Bottle 1 APPLIC TOPICAL ×2 (10:59→19:41)
[2021-05-22] MEDS: 0.9% Saline Lock 10 ML Syringe IV ×2 (10:59→19:01)
[2021-05-22] MEDS: Ondansetron 4 MG/2 ML Vial IV (10:59)
[2021-05-22 12:21] LABS: Troponin-I HS 7 pg/mL (3.0-54.0)
--- NOTE | 2021-05-22 13:09 | CASEMGMT ---
SW called patient's son, Terrence and confirmed the plan is for patient to return to [facility] at discharge. FRANK will continue to follow for discharge back to [facility]. Rosey GARCIA
[2021-05-22 16:46] LABS: Troponin-I HS 9 pg/mL (3.0-54.0)
--- NOTE | 2021-05-22 17:26 | PCM.CONS.C ---
Assessment & Plan Assessment/Plan (1) Small bowel obstruction: (2) Abdominal pain: (3) Chronic atrial fibrillation with RVR: PLAN: 76-year-old patient, with history of chronic atrial fibrillation was on anticoagulation using Coumadin Presented with abdominal pain ongoing for several days seen at the ER/[facility] Clinical diagnosis of small bowel obstruction. Cardiac consultation requested because of evidence of atrial flutter not responding to the current treatment with calcium channel you and amiodarone. Cardiac care plan recommendation; 1. We will continue on the IV amiodarone over the night. We will add beta-you as needed. 2. INR is subtherapeutic 1.9, will add IV heparin, in preparation for the plan of DCCV Direct-current synchronized cardioversion 3. Echocardiogram today showed LV function preserved. 4. We will continue to monitor and follow-up clinically HPI Consult Data Date of Consult: 05/22/21 HPI Narrative Reason for Consultation: Atrial flutter HPI Narrative: NINA ARGUETA, is a 76 F who presents [facility] Medical History (Updated 05/22/21 @ 08:[address] Mason Asencio, DO) A-fib Atrial flutter Edema GERD (gastroesophageal reflux disease) Hyperlipemia Hypothyroid Obesity Sleep apnea Medical History unable to obtain Home Medications acetaminophen 1,000 mg PO TID 05/21/21 [History Last Taken 05/21/21] clopidogrel [Plavix] 75 mg PO DAILY 05/21/21 [History Last Taken 05/21/21] fluticasone propionate [Flonase Allergy Relief] 2 spray INTRANASAL DAILY 05/21/21 [History Last Taken 05/21/21] furosemide 20 mg PO DAILY 05/21/21 [History Last Taken 05/21/21] levothyroxine 100 mcg PO DAILY 05/21/21 [History Last Taken 05/21/21] lisinopril 10 mg PO DAILY 05/21/21 [History Last Taken 05/21/21] melatonin 3 mg PO QHS 05/21/21 [History Last Taken 05/20/21] memantine 10 mg PO BID 05/21/21 [History Last Taken 05/21/21] metoprolol tartrate 75 mg PO BID 05/21/21 [History Last Taken 05/21/21] mirabegron [Myrbetriq] 50 mg PO DAILY 05/21/21 [History Last Taken 05/21/21] potassium chloride 10 meq PO BID 05/21/21 [History Last Taken 05/21/21] warfarin [Coumadin] 2.5 mg PO QHS 05/21/21 [History Last Taken 05/20/21] Allergy/AdvReac Type Severity Reaction Status Date / Time amoxicillin [From Augmentin] Allergy NEEDS Verified 05/21/21 09:14 FOLLOW-UP atorvastatin [From Lipitor] Allergy NEEDS Verified 05/21/21 09:14 FOLLOW-UP azithromycin [From Zithromax] Allergy NEEDS Verified 05/21/21 09:14 FOLLOW-UP benzonatate Allergy NEEDS Verified 05/21/21 09:14 [From Tessalon Perles] FOLLOW-UP clavulanic acid Allergy NEEDS Verified 05/21/21 09:14 [From Augmentin] FOLLOW-UP simvastatin [From Zocor] Allergy NEEDS Verified 05/21/21 09:14 FOLLOW-UP Social History Smoking Status: Unknown if ever smoked Physical Exam Narrative Seen and examined at bedside along with the nursing staff Patient has nasogastric tube in place Review of the director of cardiac rehabilitation showed underlying atrial flutter with 3-1 AV block Cardiovascular examination S1-S2 is regular, no murmur, no systolic or diastolic murmur, no pericardial rub or gallop present Chest examination clear to auscultation bilateral Central nervous system exam no focal neurological deficit noted. Risk Stratification Risk Stratification Applicable: No Objective Data Vital Signs: Vital Signs Temp Pulse Resp BP Pulse Ox 98.4 F 125 H 18 153/93 H 95 05/22/21 08:41 05/22/21 16:00 05/22/21 16:00 05/22/21 16:00 05/22/21 16:00 Oxygen Delivery Method Room Air Weight: 262 lb 5.601 oz Body Mass Index (BMI) 51.5 Intake & Output: Intake and Output for Last 24 Hours 05/20/21 05/21/21 05/22/21 23:59 23:59 23:59 Intake Total 1514.58 / 1514.58 2206.87 / 2206.87 Output Total 150 / 150 Balance 1514.58 / 1514.58 2056.87 / 2056.87 Lab / Micro Data Result Diagrams: 05/22/21 05:25 05/22/21 05:25 Labs: Laboratory Results - last 24 hr 05/22/21 05:25: PT 21.1 H, INR 1.9 05/22/21 05:25: WBC 10.8, RBC 4.75, Hgb 15.2 H, Hct 45.7, MCV 96.2, MCH 32.0, MCHC 33.3 D, RDW Std Deviation 48.7 H, RDW Coeff of Cally 13.7, Plt Count 236, MPV 10.2, Immature Gran % (Auto) 0.400, Neut % (Auto) 89.3 H, Lymph % (Auto) 5.3 L, [place] % (Auto) 4.8, Eos % (Auto) 0.0, Baso % (Auto) 0.2, Absolute Neuts (auto) 9.7 H, Absolute Lymphs (auto) 0.57 L, Nucleated RBC % 0, Differential Comment SCANNED 05/22/21 05:25: Sodium 142, Potassium 3.8, Chloride 111 H, Carbon Dioxide 22.0, Anion Gap 9, BUN 13, Creatinine 0.88, Estim Creat Clear Calc 105.36, Est GFR (MDRD) Af Amer 81, Est GFR (MDRD) Non-Af 67, BUN/Creatinine Ratio 14.8, Glucose 161 H, Calcium 9.1 05/22/21 09:15: Troponin I High Sens Cancelled 05/22/21 09:58: Troponin I High Sens 8 05/22/21 11:40: Troponin I High Sens 7 05/22/21 15:50: Troponin I High Sens 9 Cardiology Labs/Tests 05/22/21 05:25: PT 21.1 H, INR 1.9 05/22/21 05:25: WBC 10.8, RBC 4.75, Hgb 15.2 H, Hct 45.7, MCV 96.2, MCH 32.0, MCHC 33.3 D, Plt Count 236, MPV 10.2, Immature Gran % (Auto) 0.400, Neut % (Auto) 89.3 H, Lymph % (Auto) 5.3 L, [place] % (Auto) 4.8, Eos % (Auto) 0.0, Baso % (Auto) 0.2, Absolute Neuts (auto) 9.7 H, Nucleated RBC % 0 05/22/21 05:25: Sodium 142, Potassium 3.8, Chloride 111 H, Carbon Dioxide 22.0, Anion Gap 9, BUN 13, Creatinine 0.88, Est GFR (MDRD) Af Amer 81, Est GFR (MDRD) Non-Af 67, BUN/Creatinine Ratio 14.8, Glucose 161 H, Calcium 9.1 Rhythm: Atrial flutter EKG: Atrial flutter with rate 1 AV block ECHO: Preserved LV systolic function Radiography Diagnostic Testing: Radiology Impression KUB X-Ray 05/21/21 14:45 IMPRESSION: The tip of the nasogastric tube is in the body of the stomach. Electronically Signed: Jewel Cooper MD at 14:57 EST , Service support , ADDENDUM: 05/22/21 1229 IMPRESSION: The tip of the nasogastric tube is in the body of the stomach. Electronically Signed: Jewel Cooper MD at 14:57 EST , Service support , KUB X-Ray 05/22/21 07:00 IMPRESSION: There is less small bowel dilatation at this time. Gas and fecal material is seen in the colon. Electronically Signed: Jewel Cooper MD at 11:58 EST , Service support , ADDENDUM: 05/22/21 1229 IMPRESSION: There is less small bowel dilatation at this time. Gas and fecal material is seen in the colon. Electronically Signed: Jewel Cooper MD at 11:58 EST , Service support , Echocardiogram 05/22/21 08:41 Interpretation Summary The estimated ejection fraction is 60-65 %. Contrast injection used for better Endocardial visualization No prior echo to compare. Ordering Physician: Mason Asencio Referring Physician: ANANDA MCCONNELL Performed By: Adore Cornejo, SEEMA, RVT
[2021-05-22] MEDS: HYDROmorphone 0.5 MG/0.5 ML SYRINGE IV (19:01)
[2021-05-22 19:39] LABS: Partial Thromboplast Time 42.5 Seconds (24.1-36.2)
[2021-05-22 21:05] LABS: Bedside Glucose 135 mg/dL (70-110)
[2021-05-23] VITALS (29 sets, daily range): BP systolic 120–184; BP diastolic 70–121; PULSE 90–137; RESP 14–25; TEMP 36.2–37.1; O2SAT 90–100
[2021-05-23 01:48] LABS: Partial Thromboplast Time 179.2 Seconds (24.1-36.2)
[2021-05-23] MEDS: HYDROmorphone 0.5 MG/0.5 ML SYRINGE IV ×2 (02:37→20:35)
[2021-05-23] MEDS: 0.9% Saline Lock 10 ML Syringe IV ×3 (02:40→21:06)
[2021-05-23] MEDS: 0.9% Normal Saline 1,000 ML 125 ML IV ×3 (05:05→20:36)
[2021-05-23 06:36] LABS: International Normalized Ratio 2.4; Prothrombin Time (Protime)PT. 25.4 SECONDS (11.7-14.9)
[2021-05-23 06:59] LABS: ALB/GLOB Ratio 0.8 RATIO (0.9-2.4); AST(SGOT) 7 U/L (15-37); Alanine Aminotransfer ALT/SGPT 11 U/L (13-56); Albumin, Serum 2.6 g/dL (3.2-5.0); Alkaline Phosphatase 83 U/L (45-117); Anion Gap 3 (5-15); BUN 15 mg/dL (7-18); BUN/Creat Ratio 19.7 RATIO (10-20); Calcium,Total 8.6 mg/dL (8.5-10.1); Chloride 113 mmol/L (98-107); Creatinine, Serum 0.76 mg/dL (0.55-1.02); EST Glomerular Filtration Rate 79 mL/min (>60); Est Glom Filt Rate - Afr Amer 96 mL/min (>60); Estimated Creatinine Clearance 92.72 ml/min; Globulin 3.4 g/dL (2.2-4.2); Glucose 114 mg/dL (74-106); Potassium 3.7 mmol/L (3.5-5.1); Sodium Level 144 mmol/L (136-145); Thyroid Stim Hormone (TSH) 1.93 uIU/mL (0.358-3.74)
--- NOTE | 2021-05-23 07:20 | RAD_ITS ---
STUDY: X-RAY - ABDOMEN/PELVIS REASON FOR EXAM: Female, 76 years old. f/u sbo and NG placement TECHNIQUE: Single AP view of the abdomen / pelvis. COMPARISON: 05/22/2021 FINDINGS: Esophagogastric tube extends the stomach, crossing midline, likely distal stomach. No dilated loops of small bowel identified. There is no demonstrated free abdominal air. The visualized liver, spleen and kidneys are grossly normal in size and morphology. Normal soft tissue structures. There are diffuse degenerative changes of the visualized lumbar spine. RAD/Abdomen Single View (Portable) IMPRESSION: 1. Nondilated bowel gas pattern. Esophagogastric tube. Electronically Signed: Fernando Zimmerman MD (Brooks) at 7:48 EST , Service support ,
[2021-05-23] MEDS: Nystatin Powder 15gm Bottle 1 APPLIC TOPICAL ×2 (08:39→21:07)
[2021-05-23] MEDS: Menthol/Lanolin/Calamine/Znox 113 GM Tube 1 APPLIC TOPICAL ×2 (08:39→21:07)
--- NOTE | 2021-05-23 09:05 | PN.SURG_ITS ---
Subjective Subjective Patient was seen and examined during AM rounds. She is awake and alert in bed. She denies any discomfort aside from sore throat from her nasogastric tube. Only 150 mL of nasogastric tube output is recorded in the chart and nursing confirms this output has been approximately 50 to 60 mL per shift. Neither nursing nor the nursing aides have witnessed any passage of flatus. According to nursing yesterday patient was seen by interventional cardiology and there are tentative plans today to perform electrical cardioversion given the patient's persistent tachyarrhythmia. In the interim she was placed on a heparin drip. She denies any symptoms of chest pain or discomfort. Objective Data Objective Data Vital Signs: Vital Signs Temp Pulse Resp BP Pulse Ox 97.2 F L 118 H 17 156/106 H 99 05/23/21 06:00 05/23/21 07:00 05/23/21 07:00 05/23/21 07:00 05/23/21 08:00 Oxygen Flow Rate (L/min) 1 Oxygen Delivery Method Room Air Weight: 262 lb 5.601 oz Body Mass Index (BMI) 51.5 Intake & Output: Intake and Output for Last 24 Hours 05/21/21 05/22/21 05/23/21 23:59 23:59 23:59 Intake Total 1514.58 / 1514.58 3270.26 / 3316.96 1759.98 / 1759.98 Output Total 450 / 450 150 / 150 Balance 1514.58 / 1514.58 2820.26 / 2866.96 1609.98 / 1609.98 Lab / Micro Data Result Diagrams: 05/22/21 05:25 05/23/21 05:20 Labs: Laboratory Results - last 24 hr 05/22/21 09:15: Troponin I High Sens Cancelled 05/22/21 09:58: Troponin I High Sens 8 05/22/21 11:40: Troponin I High Sens 7 05/22/21 15:50: Troponin I High Sens 9 05/22/21 19:16: APTT 42.5 H 05/22/21 20:52: POC Glucose 135 H 05/23/21 00:15: APTT 179.2 H* 05/23/21 05:20: Sodium 144, Potassium 3.7, Chloride 113 H, Carbon Dioxide 28.0, Anion Gap 3 L, BUN 15, Creatinine 0.76, Estim Creat Clear Calc 92.72, Est GFR (MDRD) Af Amer 96, Est GFR (MDRD) Non-Af 79, BUN/Creatinine Ratio 19.7, Glucose 114 H, Calcium 8.6, Total Bilirubin 0.40, AST 7 L, ALT 11 L, Alkaline Phosphatase 83, Total Protein 6.0 L, Albumin 2.6 L, Globulin 3.4, Albumin/Globulin Ratio 0.8 L, TSH 1.93 05/23/21 05:20: PT 25.4 H, INR 2.4 Radiography Diagnostic Testing: Radiology Impression KUB X-Ray 05/21/21 14:45 IMPRESSION: The tip of the nasogastric tube is in the body of the stomach. Electronically Signed: Jewel Cooper MD at 14:57 EST , Service support , ADDENDUM: 05/22/21 1229 IMPRESSION: The tip of the nasogastric tube is in the body of the stomach. Electronically Signed: Jewel Cooper MD at 14:57 EST , Service support , KUB X-Ray 05/22/21 07:00 IMPRESSION: There is less small bowel dilatation at this time. Gas and fecal material is seen in the colon. Electronically Signed: Jewel Cooper MD at 11:58 EST , Service support , ADDENDUM: 05/22/21 1229 IMPRESSION: There is less small bowel dilatation at this time. Gas and fecal material is seen in the colon. Electronically Signed: Jewel Cooper MD at 11:58 EST , Service support , Echocardiogram 05/22/21 08:41 Interpretation Summary The estimated ejection fraction is 60-65 %. Contrast injection used for better Endocardial visualization No prior echo to compare. Ordering Physician: Mason Asencio Referring Physician: ANANDA MCCONNELL Performed By: Adore Cornejo, ROBERTOCS, RVT X-Ray 05/23/21 07:20 IMPRESSION: 1. Nondilated bowel gas pattern. Esophagogastric tube. Electronically Signed: Fernando Zimmerman MD (Brooks) at 7:48 EST , Service support , Physical Exam Const no apparent distress GI GI Narrative: Nondistended, soft, nontender to palpation x4 quadrants Assessment & Plan Assessment/Plan (1) Small bowel obstruction: PLAN: A 76-year-old female with complex medical history who presents from a nursing facility for small bowel obstruction with possible transition in the mid jejunum. Nasogastric tube output again minimal overnight and KUB does confirm appropriate positioning.. Abdominal exam also improved with no tenderness on exam today. Patient's KUB shows nonobstructive bowel gas pattern. I had intended to perform a small bowel follow-through if her tachyarrhythmia improved, however, if persists and I am under standing that the next course of action my cardiology is electrical cardioversion. Given the improvements in patient's exam, low NG tube output, and improvements on KUB, I am inclined to attempt to stimulate bowel function from below. If the patient is witnessed to pass flatus or have a bowel movement then remove the nasogastric tube and consider diet initiation. Neuro: As needed IV analgesics Pulm/CV: Patient should be kept on aspiration precautions with head of bed elevated at least 45 degrees given nasogastric tube and inability to speak for herself. Monitor closely for history of sleep apnea. Telemetry for history of A. fib. Hospitalist/cardiology service managing patient's A. fib with RVR. FEN/GI: Strict n.p.o. with nasogastric tube to low intermittent wall suction. Dulcolax suppository x1 today. Heme/ID: Trend daily labs Endo: No current issues but will have to monitor blood sugars while n.p.o. Proph: SCDs Dispo: Admit to inpatient Charges/Coding Visit Charges Inpatient E&M: 00156 Subs Hosp L2
--- NOTE | 2021-05-23 10:25 | PN.CARD_ITS ---
Documented by User: Yadira IBRAHIM, [place] 05/23/21 14:54 Subjective Subjective Pt is awake. Difficult to answer questions d/t her dementia. Objective Data Vital Signs: Vital Signs Temp Pulse Resp BP Pulse Ox 97.2 F L 118 H 17 156/106 H 99 05/23/21 06:00 05/23/21 07:00 05/23/21 07:00 05/23/21 07:00 05/23/21 08:00 Oxygen Flow Rate (L/min) 1 Oxygen Delivery Method Room Air Weight: 262 lb 5.601 oz Body Mass Index (BMI) 51.5 Intake & Output: Intake and Output for Last 24 Hours 05/21/21 05/22/21 05/23/21 23:59 23:59 23:59 Intake Total 1514.58 / 1514.58 3270.26 / 3316.96 1869.98 / 1869.98 Output Total 450 / 450 150 / 150 Balance 1514.58 / 1514.58 2820.26 / 2866.96 1719.98 / 1719.98 Lab / Micro Data Result Diagrams: 05/22/21 05:25 05/23/21 05:20 Labs: Laboratory Results - last 24 hr 05/22/21 11:40: Troponin I High Sens 7 05/22/21 15:50: Troponin I High Sens 9 05/22/21 19:16: APTT 42.5 H 05/22/21 20:52: POC Glucose 135 H 05/23/21 00:15: APTT 179.2 H* 05/23/21 05:20: Sodium 144, Potassium 3.7, Chloride 113 H, Carbon Dioxide 28.0, Anion Gap 3 L, BUN 15, Creatinine 0.76, Estim Creat Clear Calc 92.72, Est GFR (MDRD) Af Amer 96, Est GFR (MDRD) Non-Af 79, BUN/Creatinine Ratio 19.7, Glucose 114 H, Calcium 8.6, Total Bilirubin 0.40, AST 7 L, ALT 11 L, Alkaline Phosphatase 83, Total Protein 6.0 L, Albumin 2.6 L, Globulin 3.4, Albumin/Globulin Ratio 0.8 L, TSH 1.93 05/23/21 05:20: PT 25.4 H, INR 2.4 Cardiology Labs/Tests 05/22/21 19:16: APTT 42.5 H 05/23/21 00:15: APTT 179.2 H* 05/23/21 05:20: Sodium 144, Potassium 3.7, Chloride 113 H, Carbon Dioxide 28.0, Anion Gap 3 L, BUN 15, Creatinine 0.76, Est GFR (MDRD) Af Amer 96, Est GFR (MDRD) Non-Af 79, BUN/Creatinine Ratio 19.7, Glucose 114 H, Calcium 8.6, Total Bilirubin 0.40 05/23/21 05:20: PT 25.4 H, INR 2.4 Rhythm: Afib with HR of 120s EKG: Radiography Diagnostic Testing: Radiology Impression KUB X-Ray 05/21/21 14:45 IMPRESSION: The tip of the nasogastric tube is in the body of the stomach. Electronically Signed: Jewel Cooper MD at 14:57 EST , Service support , ADDENDUM: 05/22/21 1229 IMPRESSION: The tip of the nasogastric tube is in the body of the stomach. Electronically Signed: Jewel Cooper MD at 14:57 EST , Service support , KUB X-Ray 05/22/21 07:00 IMPRESSION: There is less small bowel dilatation at this time. Gas and fecal material is seen in the colon. Electronically Signed: Jewel Cooper MD at 11:58 EST , Service support , ADDENDUM: 05/22/21 1229 IMPRESSION: There is less small bowel dilatation at this time. Gas and fecal material is seen in the colon. Electronically Signed: Jewel Cooper MD at 11:58 EST , Service support , Echocardiogram 05/22/21 08:41 Interpretation Summary The estimated ejection fraction is 60-65 %. Contrast injection used for better Endocardial visualization No prior echo to compare. Ordering Physician: Mason Asencio Referring Physician: ANANDA MCCONNELL Performed By: Adore Cornejo, ROBERTOCS, RVT X-Ray 05/23/21 07:20 IMPRESSION: 1. Nondilated bowel gas pattern. Esophagogastric tube. Electronically Signed: Fernando Zimmerman MD (Brooks) at 7:48 EST , Service support , Physical Exam Const alert Orientation / Consciousness: oriented to person Nutritional Appearance: obese HEENT normocephalic and moist oral mucous membranes Nose: other Other Details: NG tube Eyes PERRL, EOMs intact bilaterally and conjunctivae normal Neck no JVD Resp normal respiratory effort, normal air movement, no use of accessory muscles and clear to auscultation bilaterally Cardio Jugular Venous Distention: Negative for JVD Rate: tachycardic Rhythm: abnormal rhythm irregularly irregular Heart Sounds: Negative for click, gallop, murmur or rub Bruits: Negative for carotid bruit Peripheral Pulses: pulses 2+ throughout Extremity no clubbing, cyanosis or edema Assessment & Plan Assessment/Plan (1) Chronic atrial fibrillation with RVR: PLAN: * Pt is still NPO with NG tube in place * Reviewed echo EF is normal * Pt not symptomatic with Afib, will treat with rate control. Will continue with IV amio as she can not take oral medication yet. Once she can switch to oral will consider switching to PO. Will also add IV lopressor, once she can tolerate PO will switch to oral * Pt was previous anticoagulated with coumadin, for now will continue with heparin. * may consider DCCV on OP basis. Charges/Coding Visit Charges Inpatient E&M: 94982 Subs Hosp L3 Documented by User: Dr. Darryl Martinez MD 05/23/21 17:10 Lab / Micro Data Result Diagrams: 05/22/21 05:25 05/23/21 05:20 Assessment & Plan Assessment/Plan (1) Chronic atrial fibrillation with RVR: PLAN: I saw this patient today at bedside along with the midlevel and nursing staff Reviewed all the current data including cardiac telemetry, current lab and imaging I agree with the current plan of management as beards the midlevel documentation Patient has chronic atrial fibrillation and echocardiographic evaluation showed LV function preserved This presentation with a small bowel obstruction and will continue IV medication with rate control amiodarone, beta-you metoprolol as well as heparin Cardiac care plan recommendation; To consider outpatient DCCV once she is stable clinically (2) Small bowel obstruction:
[2021-05-23] MEDS: Bisacodyl 10 MG Suppository RC (10:39)
[2021-05-23 11:15] LABS: Partial Thromboplast Time 84.7 Seconds (24.1-36.2)
--- NOTE | 2021-05-23 12:22 | PN.HOSP_ITS ---
Subjective Subjective Still w NG. Denies abdominal pain. Objective Data Objective Data Vital Signs: Vital Signs Temp Pulse Resp BP Pulse Ox 36.6 C 131 H 20 H 167/97 H 96 05/23/21 10:50 05/23/21 11:00 05/23/21 10:50 05/23/21 10:50 05/23/21 10:50 Oxygen Flow Rate (L/min) 2 Oxygen Delivery Method Room Air Weight: 119 kg Body Mass Index (BMI) 51.5 Intake & Output: Intake and Output for Last 24 Hours 05/21/21 05/22/21 05/23/21 23:59 23:59 23:59 Intake Total 1514.58 / 1514.58 3270.26 / 3316.96 Output Total 450 / 450 350 / 350 Balance 1514.58 / 1514.58 2820.26 / 2866.96 1668.23 / 1668.23 Lab / Micro Data Result Diagrams: 05/22/21 05:25 05/23/21 05:20 Labs: Laboratory Results - last 24 hr 05/22/21 15:50: Troponin I High Sens 9 05/22/21 19:16: APTT 42.5 H 05/22/21 20:52: POC Glucose 135 H 05/23/21 00:15: APTT 179.2 H* 05/23/21 05:20: Sodium 144, Potassium 3.7, Chloride 113 H, Carbon Dioxide 28.0, Anion Gap 3 L, BUN 15, Creatinine 0.76, Estim Creat Clear Calc 92.72, Est GFR (MDRD) Af Amer 96, Est GFR (MDRD) Non-Af 79, BUN/Creatinine Ratio 19.7, Glucose 114 H, Calcium 8.6, Total Bilirubin 0.40, AST 7 L, ALT 11 L, Alkaline Phosphatase 83, Total Protein 6.0 L, Albumin 2.6 L, Globulin 3.4, Albumin/Globulin Ratio 0.8 L, TSH 1.93 05/23/21 05:20: PT 25.4 H, INR 2.4 05/23/21 10:50: APTT 84.7 H Radiography Diagnostic Testing: Radiology Impression KUB X-Ray 05/21/21 14:45 IMPRESSION: The tip of the nasogastric tube is in the body of the stomach. Electronically Signed: Jewel Cooper MD at 14:57 EST , Service support , ADDENDUM: 05/22/21 1229 IMPRESSION: The tip of the nasogastric tube is in the body of the stomach. Electronically Signed: Jewel Cooper MD at 14:57 EST , Service support , KUB X-Ray 05/22/21 07:00 IMPRESSION: There is less small bowel dilatation at this time. Gas and fecal material is seen in the colon. Electronically Signed: Jewel Cooper MD at 11:58 EST , Service support , ADDENDUM: 05/22/21 1229 IMPRESSION: There is less small bowel dilatation at this time. Gas and fecal material is seen in the colon. Electronically Signed: Jewel Cooper MD at 11:58 EST , Service support , Echocardiogram 05/22/21 08:41 Interpretation Summary The estimated ejection fraction is 60-65 %. Contrast injection used for better Endocardial visualization No prior echo to compare. Ordering Physician: Mason Asencio Referring Physician: ANANDA MCCONNELL Performed By: Adore Cornejo, RDCS, RVT X-Ray 05/23/21 07:20 IMPRESSION: 1. Nondilated bowel gas pattern. Esophagogastric tube. Electronically Signed: Fernando Zimmerman MD (Brooks) at 7:48 EST , Service support , Physical Exam Const alert and no apparent distress HEENT HEENT Narrative: NGT in place Head and Scalp: normocephalic Resp normal respiratory effort, no retractions, no use of accessory muscles and clear to auscultation bilaterally Cardio Cardio Narrative: irregularly irregular GI normal to inspection, nondistended, normoactive bowel sounds, soft to palpation, non-tender and non-distended Extremity normal to inspection Assessment & Plan Assessment/Plan (1) Chronic atrial fibrillation with RVR: (2) Small bowel obstruction: PLAN: 1. afib with RVR NPO, therefore has not received any metoprolol start dilt bolus and gtt check echo, no report in our system INR 2.4--dc heparin gtt TF to PCU 2. SBO given afib w RVR, a SBFT will need to be delayed until she is more HDS Dr. Rios notified NGT in place mgmt per general surgery NPO 3. Dementia stable at present high risk for memantine held 4. VTE prophylaxis: INR 2.4. Charges/Coding Visit Charges Inpatient E&M: 68143 Subs Hosp L2
[2021-05-23] MEDS: Metoprolol Tartrate 5 MG/5 ML Vial IV ×2 (13:50→21:09)
[2021-05-23] MEDS: Amiodarone 360 MG in Dextrose 5% Viaflo Bag 192.8 ML 16.7 MG CONT INF (15:00)
--- NOTE | 2021-05-23 15:23 | CASEMGMT ---
FRANK spoke with Amalia Ken from [facility]. Patient is there private pay. They would like to skill patient if possible, but if she happens to be ready over the weekend she can return. FRANK ordered therapy as it was not ordered and this would be needed for a pre-cert. FRANK faxed updates to [facility]. FRANK told Amalia Ken that patient may be here through the weekend and if that is the case FRANK will send her PT/OT Wednesday. Rosey Junior FILLER SIFTER MACHINEAl GARCIA
[2021-05-24] VITALS (27 sets, daily range): BP systolic 129–166; BP diastolic 77–118; PULSE 92–115; RESP 15–25; TEMP 36.6–36.9; O2SAT 92–100
[2021-05-24] MEDS: Metoprolol Tartrate 5 MG/5 ML Vial IV ×4 (00:16→17:42)
[2021-05-24] MEDS: 0.9% Saline Lock 10 ML Syringe IV ×5 (00:16→17:43)
[2021-05-24] MEDS: 0.9% Normal Saline 1,000 ML 125 ML IV ×3 (04:42→21:03)
[2021-05-24 06:08] LABS: Absolute Lymphocyte Count 0.98 X10^3/uL (0.83-4.51); Absolute Neutrophil Count 9.1 X10^3/uL (2.0-7.7); Basophil# 0.02 X10^3/uL; Basophil% 0.2 % (0-1); Eosinophil# 0.05 X10^3/uL; Eosinophils% 0.4 % (0-5); Hematocrit 45.7 % (37-47); Hemoglobin 14.8 g/dL (12.0-15.0); Lymphocyte # 0.98 X10^3/ul (0.83-4.51); Lymphocyte % 8.8 % (19-41); Mean Corp Hgb Conc 32.4 g/dL (32-36); Mean Corpuscular Hgb 31.8 pg (27.0-32.0); Mean Corpuscular Volume 98.3 fL (81-99); Mean Platelet Vol. 10.5 fl (6.2-12.0); Monocyte# 0.99 X10^3/uL; Monocyte% 8.8 % (0-10); NRBC Flagged by Analyzer 0 % (0-5); Neutrophil % 81.3 % (47-70); Platelet Count 173 K/mm3 (150-450); RBC Distribution Width CV 13.5 % (11.6-14.6); RBC Distribution Width SD 49.6 fl (35.1-43.9); Red Blood Count 4.65 M/mm3 (4.2-5.4); White Blood Count 11.2 K/mm3 (4.4-11.0)
--- NOTE | 2021-05-24 06:15 | RAD_ITS ---
STUDY: X-RAY - ABDOMEN/PELVIS REASON FOR EXAM: Female, 76 years old. f/u SBO and NG position TECHNIQUE: Single AP view of the abdomen / pelvis. COMPARISON: 05/23/2021 FINDINGS: Nasogastric tube with the tip in the midline likely in the body the stomach. There is an unremarkable bowel gas pattern. The visualized liver, spleen and kidneys are grossly normal in size and morphology. Normal soft tissue structures. Mild levoscoliosis lumbar spine with degenerative disc disease. RAD/Abdomen Single View (Portable) IMPRESSION: 1. Nasogastric tube with the tip in the middle the abdomen likely in the body the stomach. 2. No bowel obstruction. Electronically Signed: Kushal Monique MD at 7:41 EST Tel , Service support ,
[2021-05-24 06:47] LABS: ALB/GLOB Ratio 0.5 RATIO (0.9-2.4); AST(SGOT) 18 U/L (15-37); Alanine Aminotransfer ALT/SGPT 13 U/L (13-56); Albumin, Serum 2.1 g/dL (3.2-5.0); Alkaline Phosphatase 76 U/L (45-117); Anion Gap 7 (5-15); BUN 13 mg/dL (7-18); BUN/Creat Ratio 19.6 RATIO (10-20); Calcium,Total 8.3 mg/dL (8.5-10.1); Chloride 115 mmol/L (98-107); Creatinine, Serum 0.66 mg/dL (0.55-1.02); EST Glomerular Filtration Rate 93 mL/min (>60); Est Glom Filt Rate - Afr Amer 112 mL/min (>60); Estimated Creatinine Clearance 92.72 ml/min; Globulin 3.9 g/dL (2.2-4.2); Glucose 94 mg/dL (74-106); Sodium Level 141 mmol/L (136-145)
[2021-05-24] MEDS: Nystatin Powder 15gm Bottle 1 APPLIC TOPICAL ×2 (07:58→21:07)
[2021-05-24] MEDS: Menthol/Lanolin/Calamine/Znox 113 GM Tube 1 APPLIC TOPICAL ×2 (07:59→21:07)
[2021-05-24 08:39] LABS: International Normalized Ratio 2.5; Prothrombin Time (Protime)PT. 25.9 SECONDS (11.7-14.9)
--- NOTE | 2021-05-24 10:38 | PCM.PN.SRG ---
Subjective Subjective No reported flatus or bowel movements Objective Data Objective Data Obese soft no rebound guarding or peritoneal signs Vital Signs: Vital Signs Temp Pulse Resp BP Pulse Ox 98.2 F 108 H 21 H 140/88 H 96 05/24/21 10:00 05/24/21 10:00 05/24/21 10:00 05/24/21 10:00 05/24/21 10:00 Oxygen Flow Rate (L/min) 2 Oxygen Delivery Method Room Air Weight: 262 lb 5.601 oz Body Mass Index (BMI) 51.5 Intake & Output: Intake and Output for Last 24 Hours 05/22/21 05/23/21 05/24/21 23:59 23:59 23:59 Intake Total 3270.26 / 3316.96 3738.07 / 3754.77 1300.8 / 1300.8 Output Total 450 / 450 350 / 450 400 / 400 Balance 2820.26 / 2866.96 3388.07 / 3304.77 900.8 / 900.8 Lab / Micro Data Result Diagrams: 05/24/21 05:36 05/24/21 05:36 Labs: Laboratory Results - last 24 hr 05/23/21 10:50: APTT 84.7 H 05/24/21 05:36: WBC 11.2 H, RBC 4.65, Hgb 14.8, Hct 45.7, MCV 98.3, MCH 31.8, MCHC 32.4, RDW Std Deviation 49.6 H, RDW Coeff of Cally 13.5, Plt Count 173, MPV 10.5, Immature Gran % (Auto) 0.500, Neut % (Auto) 81.3 H, Lymph % (Auto) 8.8 L, [place] % (Auto) 8.8, Eos % (Auto) 0.4, Baso % (Auto) 0.2, Absolute Neuts (auto) 9.1 H, Absolute Lymphs (auto) 0.98, Nucleated RBC % 0 05/24/21 05:36: Sodium 141, Potassium 4.0, Chloride 115 H, Carbon Dioxide 19.0 L, Anion Gap 7, BUN 13, Creatinine 0.66, Estim Creat Clear Calc 92.72, Est GFR (MDRD) Af Amer 112, Est GFR (MDRD) Non-Af 93, BUN/Creatinine Ratio 19.6, Glucose 94, Calcium 8.3 L, Total Bilirubin 0.70, AST 18, ALT 13, Alkaline Phosphatase 76, Total Protein 6.0 L, Albumin 2.1 L, Globulin 3.9, Albumin/Globulin Ratio 0.5 L 05/24/21 08:15: PT 25.9 H, INR 2.5 Radiography Diagnostic Testing: Radiology Impression KUB X-Ray 05/24/21 06:15 IMPRESSION: 1. Nasogastric tube with the tip in the middle the abdomen likely in the body the stomach. 2. No bowel obstruction. Electronically Signed: Kushal Monique MD at 7:41 EST Tel , Service support , Assessment & Plan Assessment/Plan (1) Small bowel obstruction: PLAN: Await GI function. Would encourage ambulation. No acute surgical intervention planned at this time.
--- NOTE | 2021-05-24 13:09 | PN.CARD_ITS ---
Subjective Subjective Patient seen and evaluated today at bedside along with the nursing staff Patient has a nasogastric tube in place Objective Data Vital Signs: Vital Signs Temp Pulse Resp BP Pulse Ox 98.2 F 102 H 21 H 140/88 H 96 05/24/21 10:00 05/24/21 11:58 05/24/21 10:00 05/24/21 11:58 05/24/21 10:00 Oxygen Flow Rate (L/min) 2 Oxygen Delivery Method Room Air Weight: 262 lb 5.601 oz Body Mass Index (BMI) 51.5 Intake & Output: Intake and Output for Last 24 Hours 05/22/21 05/23/21 05/24/21 23:59 23:59 23:59 Intake Total 3270.26 / 3316.96 3738.07 / 3754.77 2300.8 / 2300.8 Output Total 450 / 450 350 / 450 550 / 550 Balance 2820.26 / 2866.96 3388.07 / 3304.77 1750.8 / 1750.8 Lab / Micro Data Result Diagrams: 05/24/21 05:36 05/24/21 05:36 Labs: Laboratory Results - last 24 hr 05/24/21 05:36: WBC 11.2 H, RBC 4.65, Hgb 14.8, Hct 45.7, MCV 98.3, MCH 31.8, MCHC 32.4, RDW Std Deviation 49.6 H, RDW Coeff of Cally 13.5, Plt Count 173, MPV 10.5, Immature Gran % (Auto) 0.500, Neut % (Auto) 81.3 H, Lymph % (Auto) 8.8 L, [place] % (Auto) 8.8, Eos % (Auto) 0.4, Baso % (Auto) 0.2, Absolute Neuts (auto) 9.1 H, Absolute Lymphs (auto) 0.98, Nucleated RBC % 0 05/24/21 05:36: Sodium 141, Potassium 4.0, Chloride 115 H, Carbon Dioxide 19.0 L , Anion Gap 7, BUN 13, Creatinine 0.66, Estim Creat Clear Calc 92.72, Est GFR (MDRD) Af Amer 112, Est GFR (MDRD) Non-Af 93, BUN/Creatinine Ratio 19.6, Glucose 94, Calcium 8.3 L, Total Bilirubin 0.70, AST 18, ALT 13, Alkaline Phosphatase 76, Total Protein 6.0 L, Albumin 2.1 L, Globulin 3.9, Albumin/Globulin Ratio 0.5 L 05/24/21 08:15: PT 25.9 H, INR 2.5 Cardiology Labs/Tests 05/24/21 05:36: WBC 11.2 H, RBC 4.65, Hgb 14.8, Hct 45.7, MCV 98.3, MCH 31.8, MCHC 32.4, Plt Count 173, MPV 10.5, Immature Gran % (Auto) 0.500, Neut % (Auto) 81.3 H, Lymph % (Auto) 8.8 L, [place] % (Auto) 8.8, Eos % (Auto) 0.4, Baso % (Auto) 0.2, Absolute Neuts (auto) 9.1 H, Nucleated RBC % 0 05/24/21 05:36: Sodium 141, Potassium 4.0, Chloride 115 H, Carbon Dioxide 19.0 L , Anion Gap 7, BUN 13, Creatinine 0.66, Est GFR (MDRD) Af Amer 112, Est GFR (MDRD) Non-Af 93, BUN/Creatinine Ratio 19.6, Glucose 94, Calcium 8.3 L, Total Bilirubin 0.70 05/24/21 08:15: PT 25.9 H, INR 2.5 Rhythm: Atrial fibrillation/with still fast ventricular rate Radiography Diagnostic Testing: Radiology Impression KUB X-Ray 05/24/21 06:15 IMPRESSION: 1. Nasogastric tube with the tip in the middle the abdomen likely in the body the stomach. 2. No bowel obstruction. Electronically Signed: Kushal Monique MD at 7:41 EST Tel , Service support , Physical Exam Narrative Patient seen and evaluated, examined at bedside along with the nursing staff. Cardiac examination S1-S2 is irregular there is no murmur Chest examination clear to auscultation bilateral Review of the manager financial systems showed underlying atrial fibrillation with a still fast ventricular rate Assessment & Plan Assessment/Plan (1) Small bowel obstruction: (2) Chronic atrial fibrillation with RVR: PLAN: This patient with chronic atrial fibrillation, had a small bowel obstruction which is improving Patient had a history of dementia. Cardiac care plan and recommendation; 1. We will continue current IV treatment patient still has a NGT in place With amiodarone and beta-you metoprolol based on heart rate and hemodynamic with a blood pressure monitoring 2. We will discuss anticoagulation plan once she is cleared by the surgeon in regard to small bowel obstruction 3. Once we establish rate control and started on anticoagulation patient can be seen as an outpatient for a plan of possible DCCV And plan of arrange for event monitor prior to discharge 4. Also will need evaluation by nuclear stress test as an outpatient to assess for myocardial ischemia.
--- NOTE | 2021-05-24 13:59 | PN.HOSP_ITS ---
Subjective Subjective Had some abdominal pain earlier today. Objective Data Objective Data Vital Signs: Vital Signs Temp Pulse Resp BP Pulse Ox 36.8 C 102 H 21 H 140/88 H 96 05/24/21 10:00 05/24/21 11:58 05/24/21 10:00 05/24/21 11:58 05/24/21 10:00 Oxygen Flow Rate (L/min) 2 Oxygen Delivery Method Room Air Weight: 119 kg Body Mass Index (BMI) 51.5 Intake & Output: Intake and Output for Last 24 Hours 05/22/21 05/23/21 05/24/21 23:59 23:59 23:59 Intake Total 3270.26 / 3316.96 3738.07 / 3754.77 2300.8 / 2300.8 Output Total 450 / 450 350 / 450 550 / 550 Balance 2820.26 / 2866.96 3388.07 / 3304.77 1750.8 / 1750.8 Lab / Micro Data Result Diagrams: 05/24/21 05:36 05/24/21 05:36 Labs: Laboratory Results - last 24 hr 05/24/21 05:36: WBC 11.2 H, RBC 4.65, Hgb 14.8, Hct 45.7, MCV 98.3, MCH 31.8, MCHC 32.4, RDW Std Deviation 49.6 H, RDW Coeff of Cally 13.5, Plt Count 173, MPV 10.5, Immature Gran % (Auto) 0.500, Neut % (Auto) 81.3 H, Lymph % (Auto) 8.8 L, [place] % (Auto) 8.8, Eos % (Auto) 0.4, Baso % (Auto) 0.2, Absolute Neuts (auto) 9.1 H, Absolute Lymphs (auto) 0.98, Nucleated RBC % 0 05/24/21 05:36: Sodium 141, Potassium 4.0, Chloride 115 H, Carbon Dioxide 19.0 L , Anion Gap 7, BUN 13, Creatinine 0.66, Estim Creat Clear Calc 92.72, Est GFR (MDRD) Af Amer 112, Est GFR (MDRD) Non-Af 93, BUN/Creatinine Ratio 19.6, Glucose 94, Calcium 8.3 L, Total Bilirubin 0.70, AST 18, ALT 13, Alkaline Phosphatase 76, Total Protein 6.0 L, Albumin 2.1 L, Globulin 3.9, Albumin/Globulin Ratio 0.5 L 05/24/21 08:15: PT 25.9 H, INR 2.5 Radiography Diagnostic Testing: Radiology Impression KUB X-Ray 05/24/21 06:15 IMPRESSION: 1. Nasogastric tube with the tip in the middle the abdomen likely in the body the stomach. 2. No bowel obstruction. Electronically Signed: Kushal Monique MD at 7:41 EST Tel , Service support , Physical Exam Const alert and no apparent distress Resp normal respiratory effort, no retractions, no use of accessory muscles and clear to auscultation bilaterally Cardio regular rate, regular rhythm, S1 normal heart sound and S2 normal heart sound GI normal to inspection, nondistended, normoactive bowel sounds, soft to palpation, non-tender and non-distended Extremity normal to inspection Assessment & Plan Assessment/Plan (1) Chronic atrial fibrillation with RVR: PLAN: 1. afib with RVR NPO, therefore has not received any metoprolol stable on amio gtt. PRN IV metoprolol Echo shows an EF of 60-65% mgmt per cardiology INR 2/5 2. SBO given afib w RVR, a SBFT will need to be delayed until she is more HDS Dr. Rios notified NGT in place mgmt per general surgery NPO 3. Dementia stable at present high risk for memantine held 4. VTE prophylaxis: not indicated as INR 2.5 Charges/Coding Visit Charges Inpatient E&M: 41858 Subs Hosp L2
[2021-05-24] MEDS: Ondansetron 4 MG/2 ML Vial IV (15:54)
[2021-05-24] MEDS: Phenol/Sodium Phenolate 180ML 3 SPRAY MUCOUS MEM (21:04)
[2021-05-25] VITALS (31 sets, daily range): BP systolic 106–159; BP diastolic 76–129; PULSE 89–115; RESP 12–21; TEMP 36.6–37; O2SAT 97–100
[2021-05-25] MEDS: 0.9% Saline Lock 10 ML Syringe IV ×4 (00:10→09:43)
[2021-05-25] MEDS: Metoprolol Tartrate 5 MG/5 ML Vial IV ×4 (00:10→17:05)
[2021-05-25] MEDS: Phenol/Sodium Phenolate 180ML 3 SPRAY MUCOUS MEM (00:56)
[2021-05-25] MEDS: HYDROmorphone 0.5 MG/0.5 ML SYRINGE IV (04:47)
[2021-05-25] MEDS: 0.9% Normal Saline 1,000 ML 125 ML IV ×3 (05:15→22:56)
[2021-05-25 07:24] LABS: International Normalized Ratio 2.4; Prothrombin Time (Protime)PT. 25.6 SECONDS (11.7-14.9)
--- NOTE | 2021-05-25 09:26 | PCM.PN.SRG ---
Subjective Subjective No real complaints of abdominal pain. Objective Data Objective Data Obese soft no rebound guarding or peritoneal signs. Vital Signs: Vital Signs Temp Pulse Resp BP Pulse Ox 97.9 F 108 H 21 H 141/105 H 98 05/25/21 05:00 05/25/21 08:12 05/25/21 08:12 05/25/21 08:00 05/25/21 08:00 Oxygen Flow Rate (L/min) 2 Oxygen Delivery Method Nasal Cannula Weight: 262 lb 5.601 oz Body Mass Index (BMI) 51.5 Intake & Output: Intake and Output for Last 24 Hours 05/23/21 05/24/21 05/25/21 23:59 23:59 23:59 Intake Total 3738.07 / 3754.77 3507.75 / 3507.75 1150.30 / 1150.30 Output Total 350 / 450 1075 / 1075 250 / 250 Balance 3388.07 / 3304.77 2432.75 / 2432.75 900.30 / 900.30 Lab / Micro Data Result Diagrams: 05/24/21 05:36 05/24/21 05:36 Labs: Laboratory Results - last 24 hr 05/25/21 06:02: PT 25.6 H, INR 2.4 Assessment & Plan Assessment/Plan (1) Small bowel obstruction: PLAN: No real sign of GI function as of yet. We will leave NG tube in today.
[2021-05-25] MEDS: Nystatin Powder 15gm Bottle 1 APPLIC TOPICAL ×2 (11:00→22:58)
[2021-05-25] MEDS: Menthol/Lanolin/Calamine/Znox 113 GM Tube 1 APPLIC TOPICAL ×2 (11:00→22:57)
--- NOTE | 2021-05-25 14:28 | PN.CARD_ITS ---
Subjective Subjective Symptoms reported No events from last night Objective Data Vital Signs: Vital Signs Temp Pulse Resp BP Pulse Ox 98.6 F 91 14 149/88 H 100 05/25/21 12:00 05/25/21 14:13 05/25/21 14:13 05/25/21 14:13 05/25/21 14:13 Oxygen Flow Rate (L/min) 2 Oxygen Delivery Method Nasal Cannula Weight: 262 lb 5.601 oz Body Mass Index (BMI) 51.5 Intake & Output: Intake and Output for Last 24 Hours 05/23/21 05/24/21 05/25/21 23:59 23:59 23:59 Intake Total 3738.07 / 3754.77 3507.75 / 3507.75 1239.12 / 1239.12 Output Total 350 / 450 1075 / 1075 550 / 550 Balance 3388.07 / 3304.77 2432.75 / 2432.75 689.12 / 689.12 Lab / Micro Data Result Diagrams: 05/24/21 05:36 05/24/21 05:36 Labs: Laboratory Results - last 24 hr 05/25/21 06:02: PT 25.6 H, INR 2.4 Cardiology Labs/Tests 05/25/21 06:02: PT 25.6 H, INR 2.4 Rhythm: A. fib with controlled ventricular rate Physical Exam Narrative Patient still has NGT in place Cardiac telemetry showed underlying atrial fibrillation with better controlled ventricular rate Cardiovascular examination S1-S2 is irregular, no murmur, no pericardial rub or gallop Chest examination; clear to auscultation bilateral Assessment & Plan Assessment/Plan (1) Abdominal pain: (2) Small bowel obstruction: (3) Chronic atrial fibrillation with RVR: PLAN: This patient with a small bowel obstruction Still has NGT in place Chronic atrial fibrillation In this admission noted to have A. fib with rapid ventricular rate Cardiac care plan recommendations; 1. LV function is preserved ejection fraction in the range of 60-65%, mild TR with mild MR 2. Anticoagulation has been on hold patient has been on warfarin 3. We will continue amiodarone and beta-you metoprolol IV. 4. Once cleared by the surgeon will discuss further cardiac care plan in terms of anticoagulation and rate control With the plan of event monitor as an outpatient and/considering DCCV in 6 to 8- week. 5. We will continue to monitor and follow-up clinically.
--- NOTE | 2021-05-25 16:16 | PCM.PN.HOSP ---
Subjective Subjective Still with abdominal pain. HR better controlled. Objective Data Objective Data Vital Signs: Vital Signs Temp Pulse Resp BP Pulse Ox 37.0 C 106 H 17 159/108 H 100 05/25/21 12:00 05/25/21 15:00 05/25/21 15:00 05/25/21 15:00 05/25/21 15:00 Oxygen Flow Rate (L/min) 2 Oxygen Delivery Method Nasal Cannula Weight: 119 kg Body Mass Index (BMI) 51.5 Intake & Output: Intake and Output for Last 24 Hours 05/23/21 05/24/21 05/25/21 23:59 23:59 23:59 Intake Total 3738.07 / 3754.77 3507.75 / 3507.75 2362.21 / 2362.21 Output Total 350 / 450 1075 / 1075 550 / 550 Balance 3388.07 / 3304.77 2432.75 / 2432.75 1812.21 / 1812.21 Lab / Micro Data Result Diagrams: 05/24/21 05:36 05/24/21 05:36 Labs: Laboratory Results - last 24 hr 05/25/21 06:02: PT 25.6 H, INR 2.4 Physical Exam Const alert and no apparent distress Constitutional Narrative: NG in place. HEENT head/scalp atraumatic Head and Scalp: normocephalic Resp normal respiratory effort, no retractions, no use of accessory muscles and clear to auscultation bilaterally Cardio regular rate, regular rhythm, S1 normal heart sound and S2 normal heart sound GI soft to palpation and non-tender GI Narrative: hypoactive BS. Extremity normal to inspection Assessment & Plan Assessment/Plan (1) Chronic atrial fibrillation with RVR: PLAN: 1. afib with RVR NPO, therefore has not received any metoprolol stable on amio gtt. PRN IV metoprolol Echo shows an EF of 60-65% mgmt per cardiology INR 2.4 2. SBO NGT in place mgmt per general surgery NPO 3. Dementia high risk for memantine held 4. VTE prophylaxis: not indicated as INR 2.4 Charges/Coding Visit Charges Inpatient E&M: 07451 Subs Hosp L2
[2021-05-26] VITALS (33 sets, daily range): BP systolic 113–167; BP diastolic 62–112; PULSE 82–113; RESP 13–22; TEMP 36.3–36.8; O2SAT 94–100
[2021-05-26] MEDS: 0.9% Saline Lock 10 ML Syringe IV ×7 (00:27→23:19)
[2021-05-26] MEDS: Metoprolol Tartrate 5 MG/5 ML Vial IV ×5 (00:27→23:19)
[2021-05-26] MEDS: 0.9% Normal Saline 1,000 ML 125 ML IV ×2 (06:48→14:31)
--- NOTE | 2021-05-26 08:02 | RAD_ITS ---
STUDY: GASTROGRAFIN SMALL BOWEL FOLLOW-THROUGH EXAMINATION. REASON FOR EXAM: Female, 76 years old. Pt without bowel function and poss TZ in jejunum TECHNIQUE: GASTROGRAFIN was introduced through the indwelling orogastric tube. A small bowel follow-through examination was then obtained. 27 images were obtained. COMPARISON: None. FINDINGS: On the lithography contact worker film, there is evidence of dilated small bowel loops. There is evidence of small bowel dilatation down to the level of the cecum. There is delayed transit through the small bowel. Contrast is seen within the entire colon at approximately 12 hours following the placement of GASTROGRAFIN. RAD/Small Bowel Series Only IMPRESSION: Findings are in keeping with ileus bowel pattern with slow transit time. Electronically Signed: Jewel Cooper MD at 8:32 EST , Service support ,
--- NOTE | 2021-05-26 08:03 | PN.SURG_ITS ---
Subjective Subjective Patient seen and examined during AM rounds. She is awake and in no acute distress. She denies any bowel function overnight as does nursing who is present at bedside. She does complain of some irritation in her throat and states that she is hungry. Her nasogastric tube was left in over the weekend due to the absence of bowel function as well. Objective Data Objective Data Vital Signs: Vital Signs Temp Pulse Resp BP Pulse Ox 97.6 F L 107 H 14 139/89 H 100 05/26/21 00:00 05/26/21 07:22 05/26/21 07:22 05/26/21 07:22 05/26/21 07:22 Oxygen Flow Rate (L/min) 2 Oxygen Delivery Method Room Air Weight: 262 lb 5.601 oz Body Mass Index (BMI) 51.5 Intake & Output: Intake and Output for Last 24 Hours 05/24/21 05/25/21 05/26/21 23:59 23:59 23:59 Intake Total 3507.75 / 3507.75 3627.06 / 3643.76 989.17 / 989.17 Output Total 1075 / 1075 1100 / 1100 400 / 400 Balance 2432.75 / 2432.75 2527.06 / 2543.76 589.17 / 589.17 Lab / Micro Data Result Diagrams: 05/24/21 05:36 05/24/21 05:36 Micro: Microbiology 05/25/21 18:40 Nasal Secretion SARS-CoV-2 Antigen (Rapid) - Final Physical Exam Const no apparent distress Resp normal respiratory effort GI GI Narrative: Nondistended, soft, nontender to palpation x4 quadrants. Nasogastric tube with bilious output but low volume Assessment & Plan Assessment/Plan (1) Small bowel obstruction: PLAN: A 76-year-old female with complex medical history who presents from a nursing facility for small bowel obstruction with possible transition in the mid jejunum. Nasogastric tube output somewhat increased over the weekend but nonspecific bowel gas pattern on KUB from 05/24. Abdominal exam also improved with no tenderness on exam today. I had intended to perform a small bowel follow-through last week but patient had A. fib with RVR which precluded a trip to radiology. Heart rate now improved plan to proceed with small bowel follow- through today. She is experiencing severe protein calorie malnutrition and if this area suggests that patient will need to remain n.p.o., we will need to explore parenteral nutrition. Neuro: As needed IV analgesics Pulm/CV: Patient should be kept on aspiration precautions with head of bed elevated at least 45 degrees given nasogastric tube and inability to speak for herself. Monitor closely for history of sleep apnea. Telemetry for history of A. fib. Hospitalist/cardiology service managing patient's A. fib with RVR. FEN/GI: Strict n.p.o. with nasogastric tube to low intermittent wall suction. Small bowel series today. Heme/ID: Trend daily labs Endo: No current issues but will have to monitor blood sugars while n.p.o. Proph: SCDs Dispo: Continue inpatient stay Charges/Coding Visit Charges Inpatient E&M: 72750 Subs Hosp L2
[2021-05-26 08:36] LABS: International Normalized Ratio 2.4; Prothrombin Time (Protime)PT. 25.3 SECONDS (11.7-14.9)
--- NOTE | 2021-05-26 09:43 | CASEMGMT ---
FRANK faxed updates to [facility]. Rosey Junior SHOE REPAIRER SWABBER
[2021-05-26] MEDS: HYDROmorphone 0.5 MG/0.5 ML SYRINGE IV (12:45)
[2021-05-26] MEDS: Menthol/Lanolin/Calamine/Znox 113 GM Tube 1 APPLIC TOPICAL ×2 (14:14→20:01)
[2021-05-26] MEDS: Nystatin Powder 15gm Bottle 1 APPLIC TOPICAL ×2 (14:15→19:56)
[2021-05-26 16:48] LABS: Absolute Neutrophil Count 7.2 X10^3/uL (2.0-7.7); Basophil# 0.04 X10^3/uL; Basophil% 0.5 % (0-1); Eosinophil# 0.13 X10^3/uL; Eosinophils% 1.5 % (0-5); Hematocrit 45.4 % (37-47); Hemoglobin 14.6 g/dL (12.0-15.0); Lymphocyte % 9.1 % (19-41); Mean Corp Hgb Conc 32.2 g/dL (32-36); Mean Corpuscular Hgb 31.1 pg (27.0-32.0); Mean Corpuscular Volume 96.8 fL (81-99); Monocyte# 0.54 X10^3/uL; Monocyte% 6.2 % (0-10); NRBC Flagged by Analyzer 0 % (0-5); Neutrophil # 7.22 X10^3/uL (2.7-7.7); Neutrophil % 82.1 % (47-70); Platelet Count 191 K/mm3 (150-450); RBC Distribution Width CV 12.9 % (11.6-14.6); RBC Distribution Width SD 45.9 fl (35.1-43.9); Red Blood Count 4.69 M/mm3 (4.2-5.4); White Blood Count 8.8 K/mm3 (4.4-11.0)
[2021-05-26 17:08] LABS: Anion Gap 5 (5-15); BUN 12 mg/dL (7-18); BUN/Creat Ratio 22.1 RATIO (10-20); Calcium,Total 8.1 mg/dL (8.5-10.1); Chloride 116 mmol/L (98-107); Creatinine, Serum 0.54 mg/dL (0.55-1.02); EST Glomerular Filtration Rate 117 mL/min (>60); Est Glom Filt Rate - Afr Amer 141 mL/min (>60); Estimated Creatinine Clearance 92.72 ml/min; Glucose 107 mg/dL (74-106); Magnesium 1.9 mg/dL (1.6-2.6); Phosphorus 2.7 mg/dL (2.5-4.9); Potassium 3.5 mmol/L (3.5-5.1); Sodium Level 146 mmol/L (136-145)
[2021-05-26] MEDS: Lactated Ringers 1,000 ML 125 ML IV (19:40)
--- NOTE | 2021-05-26 21:46 | NURSING ---
CONFIRMED WITH PHARMACIST TETE THAT 0.45NS IS COMPATIBLE WITH AMIODARONE.
[2021-05-26] MEDS: 0.45% Normal Saline 1,000 ML 125 ML IV (21:51)
--- NOTE | 2021-05-26 21:57 | NURSING ---
2130 4 RNs attempted 2nd IV placement since LR and Amio not compatible, including nursing drilling supervisor and PROGRAM MANAGER TRANSPORTATION. Unsuccessful at placing second IV. Dr Rios made aware. Fluids changed from LR to 0.45% NS.
[2021-05-27] VITALS (34 sets, daily range): BP systolic 110–199; BP diastolic 55–168; PULSE 77–128; RESP 13–28; TEMP 36.2–36.9; O2SAT 95–100
[2021-05-27] MEDS: 0.9% Saline Lock 10 ML Syringe IV ×5 (05:11→23:03)
[2021-05-27] MEDS: 0.45% Normal Saline 1,000 ML 125 ML IV ×2 (05:11→14:02)
[2021-05-27] MEDS: Metoprolol Tartrate 5 MG/5 ML Vial IV ×4 (05:11→23:03)
--- NOTE | 2021-05-27 07:00 | RAD_ITS ---
STUDY: X-RAY - ABDOMEN/PELVIS REASON FOR EXAM: Female, 76 years old. F/u small bowel series TECHNIQUE: Two AP supine views of the abdomen and pelvis. COMPARISON: May 24, 2021 abdomen study FINDINGS: Limited study. There is an NG tube present. Tip is in the stomach. There is radiopaque contrast within the distal small bowel and the colon. There are subtle fluid distended or contrast distended loops of small bowel in the left lower abdomen. RAD/Abdomen Single View (Portable) IMPRESSION: Findings suspicious for partial small bowel obstruction. Could consider follow-up noncontrast CT. NG tube present the tip is in the stomach. Electronically Signed: Megan Fournier MD at 7:57 EST Tel , Service support ,
--- NOTE | 2021-05-27 08:04 | PN.SURG_ITS ---
Subjective Subjective Patient seen and examined during AM rounds. She denies any awareness of gas or bowel movement overnight. She complains of irritation from her nasogastric tube. She states she does have an appetite. Objective Data Objective Data Vital Signs: Vital Signs Temp Pulse Resp BP Pulse Ox 98.0 F 94 19 H 154/90 H 100 05/27/21 06:00 05/27/21 08:00 05/27/21 08:00 05/27/21 08:00 05/27/21 08:00 Oxygen Flow Rate (L/min) 2 Oxygen Delivery Method Nasal Cannula Weight: 262 lb 5.601 oz Body Mass Index (BMI) 51.5 Intake & Output: Intake and Output for Last 24 Hours 05/25/21 05/26/21 05/27/21 23:59 23:59 23:59 Intake Total 3627.06 / 3643.76 3078.31 / 3095.01 1073.78 / 1073.78 Output Total 1100 / 1100 1850 / 1850 250 / 250 Balance 2527.06 / 2543.76 1228.31 / 1245.01 823.78 / 823.78 Lab / Micro Data Result Diagrams: 05/26/21 16:35 05/26/21 16:35 Labs: Laboratory Results - last 24 hr 05/26/21 08:04: PT 25.3 H, INR 2.4 05/26/21 16:35: WBC 8.8, RBC 4.69, Hgb 14.6, Hct 45.4, MCV 96.8, MCH 31.1, MCHC 32.2, RDW Std Deviation 45.9 H, RDW Coeff of Cally 12.9, Plt Count 191, MPV 10.0, Immature Gran % (Auto) 0.600, Neut % (Auto) 82.1 H, Lymph % (Auto) 9.1 L, [place] % (Auto) 6.2, Eos % (Auto) 1.5, Baso % (Auto) 0.5, Absolute Neuts (auto) 7.2, Absolute Lymphs (auto) 0.80 L, Nucleated RBC % 0 05/26/21 16:35: Sodium 146 H, Potassium 3.5, Chloride 116 H, Carbon Dioxide 25.0, Anion Gap 5, BUN 12, Creatinine 0.54 L, Estim Creat Clear Calc 92.72, Est GFR (MDRD) Af Amer 141, Est GFR (MDRD) Non-Af 117, BUN/Creatinine Ratio 22.1 H, Glucose 107 H, Calcium 8.1 L, Phosphorus 2.7, Magnesium 1.9 Micro: Microbiology 05/25/21 18:40 Nasal Secretion SARS-CoV-2 Antigen (Rapid) - Final Radiography Diagnostic Testing: Radiology Impression KUB X-Ray 05/27/21 07:00 IMPRESSION: Findings suspicious for partial small bowel obstruction. Could consider follow-up noncontrast CT. NG tube present the tip is in the stomach. Electronically Signed: Megan Fournier MD at 7:57 EST Tel , Service support , Physical Exam Const no apparent distress Resp normal respiratory effort GI GI Narrative: Nondistended, soft, nontender to palpation in all 4 quadrants. Nasogastric tube output is dark brown but minimal in volume Assessment & Plan Assessment/Plan (1) Small bowel obstruction: PLAN: A 76-year-old female with complex medical history who presents from a nursing facility for small bowel obstruction with possible transition in the mid jejunum. Small bowel series yesterday showed slow transit through the small bowel but without hold-up of contrast. Follow-up KUB this morning shows that contrast has entered the colon. No definitive evidence of return of bowel function just yet. Nasogastric tube output is nominal. Abdominal exam remains improved with no tenderness on exam today. Nasogastric tube removed at bedside today. Will hold on initiation of diet until patient has actual bowel movement. Neuro: As needed IV analgesics Pulm/CV: Patient should be kept on aspiration precautions with head of bed elevated at least 45 degrees given nasogastric tube and inability to speak for herself. Monitor closely for history of sleep apnea. Telemetry for history of A. fib. Hospitalist/cardiology service managing patient's A. fib with RVR. FEN/GI: Monitoring electrolytes?IVF switched to half-normal given hyperchlorem ia. Strict n.p.o. until patient has bowel movement. NG tube discontinued 05/27/2021 Heme/ID: Trend daily labs Endo: No current issues but will have to monitor blood sugars while n.p.o. Proph: SCDs Dispo: Continue inpatient stay Charges/Coding Visit Charges Inpatient E&M: 39351 Subs Hosp L2
[2021-05-27 09:37] LABS: Anion Gap 10 (5-15); BUN 11 mg/dL (7-18); BUN/Creat Ratio 21.6 RATIO (10-20); Calcium,Total 8.6 mg/dL (8.5-10.1); Chloride 113 mmol/L (98-107); Creatinine, Serum 0.51 mg/dL (0.55-1.02); EST Glomerular Filtration Rate 125 mL/min (>60); Est Glom Filt Rate - Afr Amer 152 mL/min (>60); Estimated Creatinine Clearance 92.72 ml/min; Glucose 70 mg/dL (74-106); Magnesium 2.4 mg/dL (1.6-2.6); Phosphorus 2.8 mg/dL (2.5-4.9); Potassium 3.4 mmol/L (3.5-5.1); Sodium Level 146 mmol/L (136-145)
[2021-05-27] MEDS: Potassium Chloride 10mEq/100mL 10 MEQ/100 ML IV.SOLN. 100 MEQ IV BOLUS ×3 (11:17→13:56)
--- NOTE | 2021-05-27 11:42 | CASEMGMT ---
FRANK faxed updates to [facility]. Rosey Junior POLICE JUDGE LOAN COORDINATOR
[2021-05-27] MEDS: Nystatin Powder 15gm Bottle 1 APPLIC TOPICAL ×2 (12:52→21:23)
[2021-05-27] MEDS: Menthol/Lanolin/Calamine/Znox 113 GM Tube 1 APPLIC TOPICAL ×2 (12:53→21:23)
--- NOTE | 2021-05-27 13:38 | PCM.PN.HOSP ---
Subjective Subjective Patient 76-year-old female with underlying history of dementia a resident is extended care facility brought in with abdominal pain. CT of the abdomen obtained on admission demonstrated small bowel obstruction with transitional zone in the mid jejunum. Patient was also found to be in A. fib with RVR hospitalist service subsequently consulted to assist with management of patient medical comorbidities Objective Data Objective Data Vital Signs: Vital Signs Temp Pulse Resp BP Pulse Ox 98.4 F 97 15 117/70 100 05/27/21 13:00 05/27/21 13:18 05/27/21 13:00 05/27/21 13:00 05/27/21 13:00 Oxygen Flow Rate (L/min) 2 Oxygen Delivery Method Nasal Cannula Weight: 119 kg Body Mass Index (BMI) 51.5 Intake & Output: Intake and Output for Last 24 Hours 05/25/21 05/26/21 05/27/21 23:59 23:59 23:59 Intake Total 3627.06 / 3643.76 3078.31 / 3095.01 1367.28 / 1367.28 Output Total 1100 / 1100 1850 / 1850 375 / 375 Balance 2527.06 / 2543.76 1228.31 / 1245.01 992.28 / 992.28 Lab / Micro Data Result Diagrams: 05/26/21 16:35 05/27/21 07:42 Labs: Laboratory Results - last 24 hr 05/26/21 16:35: WBC 8.8, RBC 4.69, Hgb 14.6, Hct 45.4, MCV 96.8, MCH 31.1, MCHC 32.2, RDW Std Deviation 45.9 H, RDW Coeff of Cally 12.9, Plt Count 191, MPV 10.0, Immature Gran % (Auto) 0.600, Neut % (Auto) 82.1 H, Lymph % (Auto) 9.1 L, [place] % (Auto) 6.2, Eos % (Auto) 1.5, Baso % (Auto) 0.5, Absolute Neuts (auto) 7.2, Absolute Lymphs (auto) 0.80 L, Nucleated RBC % 0 05/26/21 16:35: Sodium 146 H, Potassium 3.5, Chloride 116 H, Carbon Dioxide 25.0, Anion Gap 5, BUN 12, Creatinine 0.54 L, Estim Creat Clear Calc 92.72, Est GFR (MDRD) Af Amer 141, Est GFR (MDRD) Non-Af 117, BUN/Creatinine Ratio 22.1 H, Glucose 107 H, Calcium 8.1 L, Phosphorus 2.7, Magnesium 1.9 05/27/21 07:42: Sodium 146 H, Potassium 3.4 L, Chloride 113 H, Carbon Dioxide 23.0, Anion Gap 10, BUN 11, Creatinine 0.51 L, Estim Creat Clear Calc 92.72, Est GFR (MDRD) Af Amer 152, Est GFR (MDRD) Non-Af 125, BUN/Creatinine Ratio 21.6 H, Glucose 70 L, Calcium 8.6, Phosphorus 2.8, Magnesium 2.4 Micro: Microbiology 05/25/21 18:40 Nasal Secretion SARS-CoV-2 Antigen (Rapid) - Final Radiography Diagnostic Testing: Radiology Impression KUB X-Ray 05/24/21 06:15 IMPRESSION: 1. Nasogastric tube with the tip in the middle the abdomen likely in the body the stomach. 2. No bowel obstruction. Electronically Signed: Kushal Monique MD at 7:41 EST Tel , Service support , ADDENDUM: 05/27/21 0836 IMPRESSION: 1. Nasogastric tube with the tip in the middle the abdomen likely in the body the stomach. 2. No bowel obstruction. Electronically Signed: Kushal Monique MD at 7:41 EST Tel , Service support , Small Bowel X-Ray 05/26/21 08:02 IMPRESSION: Findings are in keeping with ileus bowel pattern with slow transit time. Electronically Signed: Jewel Cooper MD at 8:32 EST , Service support , KUB X-Ray 05/27/21 07:00 IMPRESSION: Findings suspicious for partial small bowel obstruction. Could consider follow-up noncontrast CT. NG tube present the tip is in the stomach. Electronically Signed: Megan Fournier MD at 7:57 EST Tel , Service support , ADDENDUM: 05/27/21 0835 IMPRESSION: Findings suspicious for partial small bowel obstruction. Could consider follow-up noncontrast CT. NG tube present the tip is in the stomach. Electronically Signed: Megan Fournier MD at 7:57 EST Tel , Service support , Physical Exam Narrative GENERAL: cooperative HEENT: Atraumatic; EYES; Anicteric, Normal Conjunctiva NECK; supple, normal thyroid, RESPIRATORY: Diminished to auscultation CARDIOVASCULAR: Irregular S1-S2 GI: soft, normoactive bowel sounds, : No Renal angle tenderness; EXTREMITIES: No edema, no clubbing, MUSCULOSKELETAL: no muscle waisting NEURO: Awake; no lateralizing signs. SKIN: No Rash PSYCH; Flat affect Assessment & Plan Assessment/Plan (1) Chronic atrial fibrillation with RVR: PLAN: Patient 76-year-old female with underlying history of dementia a resident is extended care facility brought in with abdominal pain. CT of the abdomen obtained on admission demonstrated small bowel obstruction with transitional zone in the mid jejunum. Patient was also found to be in A. fib with RVR hospitalist service subsequently consulted to assist with management of patient medical comorbidities 1. Small bowel obstruction -05/27/2021 patient managed conservatively. Small bowel obstruction did resolve. NG tube discontinued this a.m. 2. Paroxysmal A. fib with RVR ?Patient heart rate relatively well controlled now on amiodarone drip with plans to start p.o. amiodarone starting 05/28/2021 by cardiology plan is to resume patient's Coumadin 3. Alzheimer's dementia -Supportive care 4. Hypothyroidism - Patient is on levothyroxine home dose continued 5. Hypertension - Blood pressure controlled, home medications continued with dose adjustment as needed 6. DVT prophylaxis ?On systemic anticoagulation with Coumadin with a therapeutic INR 7. Class III obesity with BMI of 51.5 Charges/Coding Visit Charges Inpatient E&M: 14584 Subs Hosp L2
[2021-05-28] VITALS (18 sets, daily range): BP systolic 121–171; BP diastolic 61–115; PULSE 91–115; RESP 13–24; TEMP 36.2–36.8; O2SAT 94–99
[2021-05-28] MEDS: 0.9% Saline Lock 10 ML Syringe IV ×3 (01:25→10:55)
[2021-05-28] MEDS: HYDROmorphone 0.5 MG/0.5 ML SYRINGE IV (01:25)
[2021-05-28] MEDS: Ondansetron 4 MG/2 ML Vial IV (01:25)
[2021-05-28] MEDS: Metoprolol Tartrate 5 MG/5 ML Vial IV (05:02)
[2021-05-28 05:49] LABS: Anion Gap 7 (5-15); BUN 11 mg/dL (7-18); BUN/Creat Ratio 19.7 RATIO (10-20); Calcium,Total 8.1 mg/dL (8.5-10.1); Chloride 110 mmol/L (98-107); Creatinine, Serum 0.56 mg/dL (0.55-1.02); EST Glomerular Filtration Rate 113 mL/min (>60); Est Glom Filt Rate - Afr Amer 137 mL/min (>60); Estimated Creatinine Clearance 92.72 ml/min; Glucose 114 mg/dL (74-106); Magnesium 1.9 mg/dL (1.6-2.6); Phosphorus 2.7 mg/dL (2.5-4.9); Potassium 3.2 mmol/L (3.5-5.1); Sodium Level 141 mmol/L (136-145)
--- NOTE | 2021-05-28 07:23 | PN.SURG_ITS ---
Subjective Subjective Patient seen and examined during AM rounds. She is found sleeping when I arrive but easily arousable. She denies any abdominal discomfort. She states she tolerated dinner without getting sick yesterday. She questions where her mask is for her sleep apnea. Objective Data Objective Data Vital Signs: Vital Signs Temp Pulse Resp BP Pulse Ox 97.1 F L 97 20 H 150/83 H 94 05/28/21 05:00 05/28/21 07:00 05/28/21 07:00 05/28/21 07:00 05/28/21 07:00 Oxygen Flow Rate (L/min) 2 Oxygen Delivery Method Room Air Weight: 262 lb 5.601 oz Body Mass Index (BMI) 51.5 Intake & Output: Intake and Output for Last 24 Hours 05/26/21 05/27/21 05/28/21 23:59 23:59 23:59 Intake Total 3078.31 / 3095.01 3221.78 / 3238.48 131.25 / 131.25 Output Total 1850 / 1850 475 / 475 Balance 1228.31 / 1245.01 2746.78 / 2763.48 131.25 / 131.25 Lab / Micro Data Result Diagrams: 05/26/21 16:35 05/28/21 04:36 Labs: Laboratory Results - last 24 hr 05/27/21 07:42: Sodium 146 H, Potassium 3.4 L, Chloride 113 H, Carbon Dioxide 23.0, Anion Gap 10, BUN 11, Creatinine 0.51 L, Estim Creat Clear Calc 92.72, Est GFR (MDRD) Af Amer 152, Est GFR (MDRD) Non-Af 125, BUN/Creatinine Ratio 21.6 H, Glucose 70 L, Calcium 8.6, Phosphorus 2.8, Magnesium 2.4 05/28/21 04:36: Sodium 141, Potassium 3.2 L, Chloride 110 H, Carbon Dioxide 24.0, Anion Gap 7, BUN 11, Creatinine 0.56, Estim Creat Clear Calc 92.72, Est GFR (MDRD) Af Amer 137, Est GFR (MDRD) Non-Af 113, BUN/Creatinine Ratio 19.7, Glucose 114 H, Calcium 8.1 L, Phosphorus 2.7, Magnesium 1.9 Micro: Microbiology 05/25/21 18:40 Nasal Secretion SARS-CoV-2 Antigen (Rapid) - Final Radiography Diagnostic Testing: Radiology Impression KUB X-Ray 05/24/21 06:15 IMPRESSION: 1. Nasogastric tube with the tip in the middle the abdomen likely in the body the stomach. 2. No bowel obstruction. Electronically Signed: Kushal Monique MD at 7:41 EST Tel , Service support , ADDENDUM: 05/27/21 0836 IMPRESSION: 1. Nasogastric tube with the tip in the middle the abdomen likely in the body the stomach. 2. No bowel obstruction. Electronically Signed: Kushal Monique MD at 7:41 EST Tel , Service support , Small Bowel X-Ray 05/26/21 08:02 IMPRESSION: Findings are in keeping with ileus bowel pattern with slow transit time. Electronically Signed: Jewel Cooper MD at 8:32 EST , Service support , KUB X-Ray 05/27/21 07:00 IMPRESSION: Findings suspicious for partial small bowel obstruction. Could consider follow-up noncontrast CT. NG tube present the tip is in the stomach. Electronically Signed: Megan Fournier MD at 7:57 EST Tel , Service support , ADDENDUM: 05/27/21 0835 IMPRESSION: Findings suspicious for partial small bowel obstruction. Could consider follow-up noncontrast CT. NG tube present the tip is in the stomach. Electronically Signed: Megan Fournier MD at 7:57 EST Tel , Service support , Physical Exam Const no apparent distress Resp normal respiratory effort GI GI Narrative: Obese, nondistended. Soft, nontender to palpation x4 quadrants Assessment & Plan Assessment/Plan (1) Small bowel obstruction: PLAN: A 76-year-old female with complex medical history who presents from a nursing facility for small bowel obstruction with possible transition in the mid jejunum. Patient had nasogastric tube discontinued yesterday after contrast from small bowel series 2 days ago showed transit into the colon. Thereafter she experienced several bowel movements and was advanced to a diet. She has tolerated this advancement well and denies any abdominal discomfort today. With present course, anticipate disposition back to her nursing facility in the next day or so. Neuro: Patient without pain complaints Pulm/CV: Patient should be kept on aspiration precautions with head of bed charline vated at least 45 degrees while diet is advanced. Monitor closely for history of sleep apnea. Telemetry for history of A. fib. Hospitalist/cardiology service managing patient's A. fib?with tentative plans to advance to p.o amiodarone and resume Coumadin. FEN/GI: Monitoring electrolytes?replacement given for hypokalemia. Advance to soft, low residue diet. NG tube discontinued 05/27/2021 Heme/ID: Trend daily labs Endo: No current issues but will have to monitor blood sugars while n.p.o. Proph: SCDs Dispo: Continue inpatient stay, but patient could be eligible for discharge back to nursing facility later today versus tomorrow if tolerating diet advancement and okayed by medicine
--- NOTE | 2021-05-28 08:28 | PCM.PN.CARD ---
Subjective Subjective Patient seen and evaluated. Awake and alert. Objective Data Vital Signs: Vital Signs Temp Pulse Resp BP Pulse Ox 97.1 F L 97 20 H 150/83 H 94 05/28/21 05:00 05/28/21 07:00 05/28/21 07:00 05/28/21 07:00 05/28/21 07:00 Oxygen Flow Rate (L/min) 2 Oxygen Delivery Method Room Air Weight: 262 lb 5.601 oz Body Mass Index (BMI) 51.5 Intake & Output: Intake and Output for Last 24 Hours 05/26/21 05/27/21 05/28/21 23:59 23:59 23:59 Intake Total 3078.31 / 3095.01 3221.78 / 3238.48 131.25 / 131.25 Output Total 1850 / 1850 475 / 475 Balance 1228.31 / 1245.01 2746.78 / 2763.48 131.25 / 131.25 Lab / Micro Data Result Diagrams: 05/26/21 16:35 05/28/21 04:36 Labs: Laboratory Results - last 24 hr 05/27/21 07:42: Sodium 146 H, Potassium 3.4 L, Chloride 113 H, Carbon Dioxide 23.0, Anion Gap 10, BUN 11, Creatinine 0.51 L, Estim Creat Clear Calc 92.72, Est GFR (MDRD) Af Amer 152, Est GFR (MDRD) Non-Af 125, BUN/Creatinine Ratio 21.6 H, Glucose 70 L, Calcium 8.6, Phosphorus 2.8, Magnesium 2.4 05/28/21 04:36: Sodium 141, Potassium 3.2 L, Chloride 110 H, Carbon Dioxide 24.0, Anion Gap 7, BUN 11, Creatinine 0.56, Estim Creat Clear Calc 92.72, Est GFR (MDRD) Af Amer 137, Est GFR (MDRD) Non-Af 113, BUN/Creatinine Ratio 19.7, Glucose 114 H, Calcium 8.1 L, Phosphorus 2.7, Magnesium 1.9 Cardiology Labs/Tests 05/27/21 07:42: Sodium 146 H, Potassium 3.4 L, Chloride 113 H, Carbon Dioxide 23.0, Anion Gap 10, BUN 11, Creatinine 0.51 L, Est GFR (MDRD) Af Amer 152, Est GFR (MDRD) Non-Af 125, BUN/Creatinine Ratio 21.6 H, Glucose 70 L, Calcium 8.6, Phosphorus 2.8, Magnesium 2.4 05/28/21 04:36: Sodium 141, Potassium 3.2 L, Chloride 110 H, Carbon Dioxide 24.0, Anion Gap 7, BUN 11, Creatinine 0.56, Est GFR (MDRD) Af Amer 137, Est GFR (MDRD) Non-Af 113, BUN/Creatinine Ratio 19.7, Glucose 114 H, Calcium 8.1 L, Phosphorus 2.7, Magnesium 1.9 Rhythm: EKG: ECHO: Stress Test: Cardiac Cath: PCI: CT Surgery: Holter monitor: EPS: PPM: CXR: Chest CT Scan: Radiography Diagnostic Testing: Radiology Impression KUB X-Ray 05/24/21 06:15 IMPRESSION: 1. Nasogastric tube with the tip in the middle the abdomen likely in the body the stomach. 2. No bowel obstruction. Electronically Signed: Kushal Monique MD at 7:41 EST Tel , Service support , ADDENDUM: 05/27/21 0836 IMPRESSION: 1. Nasogastric tube with the tip in the middle the abdomen likely in the body the stomach. 2. No bowel obstruction. Electronically Signed: Kushal Monique MD at 7:41 EST Tel , Service support , Small Bowel X-Ray 05/26/21 08:02 IMPRESSION: Findings are in keeping with ileus bowel pattern with slow transit time. Electronically Signed: Jewel Cooper MD at 8:32 EST , Service support , KUB X-Ray 05/27/21 07:00 IMPRESSION: Findings suspicious for partial small bowel obstruction. Could consider follow-up noncontrast CT. NG tube present the tip is in the stomach. Electronically Signed: Megan Fournier MD at 7:57 EST Tel , Service support , ADDENDUM: 05/27/21 0835 IMPRESSION: Findings suspicious for partial small bowel obstruction. Could consider follow-up noncontrast CT. NG tube present the tip is in the stomach. Electronically Signed: Megan Fournier MD at 7:57 EST Tel , Service support , Assessment & Plan Assessment/Plan (1) Chronic atrial fibrillation with RVR: PLAN: We will recommend discontinuing amiodarone We will start oral beta-you with metoprolol 100 mg twice a day Patient was on anticoagulation and would defer to starting time to his surgeon Her ejection fraction was preserved We will hold off on lisinopril for now
--- NOTE | 2021-05-28 08:35 | PN.HOSP_ITS ---
Subjective Subjective Patient seen. Remains comfortable at rest. Diagnostic data single potassium of 3.2 which is being replaced. Case discussed with general surgery, plan is for patient to be discharged back to [facility]. Heart rate remains controlled. Beta- you dose is adjusted by cardiology Objective Data Objective Data Vital Signs: Vital Signs Temp Pulse Resp BP Pulse Ox 97.1 F L 97 20 H 150/83 H 94 05/28/21 05:00 05/28/21 07:00 05/28/21 07:00 05/28/21 07:00 05/28/21 07:00 Oxygen Flow Rate (L/min) 2 Oxygen Delivery Method Room Air Weight: 119 kg Body Mass Index (BMI) 51.5 Intake & Output: Intake and Output for Last 24 Hours 05/26/21 05/27/21 05/28/21 23:59 23:59 23:59 Intake Total 3078.31 / 3095.01 3221.78 / 3238.48 131.25 / 131.25 Output Total 1850 / 1850 475 / 475 Balance 1228.31 / 1245.01 2746.78 / 2763.48 131.25 / 131.25 Lab / Micro Data Result Diagrams: 05/26/21 16:35 05/28/21 04:36 Labs: Laboratory Results - last 24 hr 05/27/21 07:42: Sodium 146 H, Potassium 3.4 L, Chloride 113 H, Carbon Dioxide 23.0, Anion Gap 10, BUN 11, Creatinine 0.51 L, Estim Creat Clear Calc 92.72, Est GFR (MDRD) Af Amer 152, Est GFR (MDRD) Non-Af 125, BUN/Creatinine Ratio 21.6 H, Glucose 70 L, Calcium 8.6, Phosphorus 2.8, Magnesium 2.4 05/28/21 04:36: Sodium 141, Potassium 3.2 L, Chloride 110 H, Carbon Dioxide 24.0, Anion Gap 7, BUN 11, Creatinine 0.56, Estim Creat Clear Calc 92.72, Est GFR (MDRD) Af Amer 137, Est GFR (MDRD) Non-Af 113, BUN/Creatinine Ratio 19.7, Glucose 114 H, Calcium 8.1 L, Phosphorus 2.7, Magnesium 1.9 Micro: Microbiology 05/25/21 18:40 Nasal Secretion SARS-CoV-2 Antigen (Rapid) - Final Radiography Diagnostic Testing: Radiology Impression KUB X-Ray 05/24/21 06:15 IMPRESSION: 1. Nasogastric tube with the tip in the middle the abdomen likely in the body the stomach. 2. No bowel obstruction. Electronically Signed: Kushal Monique MD at 7:41 EST Tel , Service support , ADDENDUM: 05/27/21 0836 IMPRESSION: 1. Nasogastric tube with the tip in the middle the abdomen likely in the body the stomach. 2. No bowel obstruction. Electronically Signed: Kushal Monique MD at 7:41 EST Tel , Service support , KUB X-Ray 05/27/21 07:00 IMPRESSION: Findings suspicious for partial small bowel obstruction. Could consider follow-up noncontrast CT. NG tube present the tip is in the stomach. Electronically Signed: Megan Fournier MD at 7:57 EST Tel , Service support , ADDENDUM: 05/27/21 0835 IMPRESSION: Findings suspicious for partial small bowel obstruction. Could consider follow-up noncontrast CT. NG tube present the tip is in the stomach. Electronically Signed: Megan Fournier MD at 7:57 EST Tel , Service support , Physical Exam Narrative GENERAL: cooperative HEENT: Atraumatic; EYES; Anicteric, Normal Conjunctiva NECK; supple, normal thyroid, RESPIRATORY: Diminished to auscultation CARDIOVASCULAR: Irregular S1-S2 GI: soft, normoactive bowel sounds, : No Renal angle tenderness; EXTREMITIES: No edema, no clubbing, MUSCULOSKELETAL: no muscle waisting NEURO: Awake; no lateralizing signs. SKIN: No Rash PSYCH; Flat affect Assessment & Plan Assessment/Plan (1) Chronic atrial fibrillation with RVR: PLAN: Patient 76-year-old female with underlying history of dementia a resident is extended care facility brought in with abdominal pain. CT of the abdomen obtained on admission demonstrated small bowel obstruction with transitional zone in the mid jejunum. Patient was also found to be in A. fib with RVR hospitalist service subsequently consulted to assist with management of patient medical comorbidities 1. Small bowel obstruction -05/27/2021 patient managed conservatively. Small bowel obstruction did resolve. NG tube discontinued this a.m. 2. Paroxysmal A. fib with RVR ?Patient heart rate relatively well controlled now on amiodarone drip with plans to start p.o. amiodarone starting 05/28/2021 by cardiology plan is to resume patient's Coumadin -05/28/2021. Amiodarone weaned off cardiology dose increased from 75 p.o. twice daily to 100 mg p.o. twice daily 3. Alzheimer's dementia -Supportive care 4. Hypothyroidism - Patient is on levothyroxine home dose continued 5. Hypertension - Blood pressure controlled, home medications continued with dose adjustment as needed 6. DVT prophylaxis ?On systemic anticoagulation with Coumadin with a therapeutic INR 7. Class III obesity with BMI of 51.5 Charges/Coding Visit Charges Inpatient E&M: 36756 Subs Hosp L2
[2021-05-28] MEDS: Metoprolol Tartrate 100 MG Tablet PO (08:50)
[2021-05-28] MEDS: Potassium Chloride 10mEq/100mL 10 MEQ/100 ML IV.SOLN. 100 MEQ IV BOLUS ×4 (08:51→12:48)
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
[2021-05-28] MEDS: Menthol/Lanolin/Calamine/Znox 113 GM Tube 1 APPLIC TOPICAL (09:58)
[2021-05-28] MEDS: Nystatin Powder 15gm Bottle 1 APPLIC TOPICAL (09:58)
--- NOTE | 2021-05-28 10:00 | TREXTCAR_ITS ---
Diet 05/28/21 07:33 Diet: Transitional Is pt able to select menu?: No Diet Comments: No carbonation Wound(s) RFA: Wound Type: redness/edema Suggestions for Active Care Positions to Avoid: Avoid pressure on the coccyx area for long periods of time Therapies Physical Therapy: Eval and Treat Occupational Therapy: Eval and Treat Problem/Diagnosis (1) Chronic atrial fibrillation with RVR: Status: Chronic Allergies/Procedures Done in Hospital Allergies amoxicillin [From Augmentin] Allergy (Verified 05/21/21 09:14) NEEDS FOLLOW-UP atorvastatin [From Lipitor] Allergy (Verified 05/21/21 09:14) NEEDS FOLLOW-UP azithromycin [From Zithromax] Allergy (Verified 05/21/21 09:14) NEEDS FOLLOW-UP benzonatate [From Tessalon Perles] Allergy (Verified 05/21/21 09:14) NEEDS FOLLOW-UP clavulanic acid [From Augmentin] Allergy (Verified 05/21/21 09:14) NEEDS FOLLOW-UP simvastatin [From Zocor] Allergy (Verified 05/21/21 09:14) NEEDS FOLLOW-UP Type of Care/Length of Stay Estimated LOS: More Than 30 Days Type of Care Needed: Correction/Assisted Living Rehab Potential: Fair Prognosis: Fair Additional Orders/Day of Discharge Day of Discharge: 05/28/21 Dietary and Speech Recommendations Dietitian Recommendations/Changes: Recommend advance diet as tolerated to transitional. Will monitor need for ONS as diet advanced. Will monitor for appropriateness of TPN if unable to advance PO diet. Follow Up Care Please follow up with your Primary Care Physician in: 1 week Please Follow Up With: Mynor Chou MD When: 1 week Please Follow Up With: Ramy Rios MD When: 10 days Discharge Plan Admission Admit Date/Time: 05/22/21 08:12 Primary Reason for Your Visit: Small bowel obstruction Attending Provider: Ramy Rios Primary Care Provider: Aldair Blankenship Consulting Providers: Darryl Martinez Discharge Orders/Prescriptions Prescriptions: Continued warfarin 2.5 mg Tablet 2.5 mg PO QHS RF: 0 melatonin 3 mg Tablet 3 mg PO QHS RF: 0 clopidogrel [Plavix] 75 mg tablet 75 mg PO DAILY RF: 0 acetaminophen 500 mg Tablet 1,000 mg PO TID RF: 0 levothyroxine 100 mcg tablet 100 mcg PO DAILY RF: 0 furosemide 20 mg tablet 20 mg PO DAILY RF: 0 fluticasone propionate [Flonase Allergy Relief] 50 mcg/actuation spray,suspension 2 spray INTRANASAL DAILY RF: 0 potassium chloride 10 mEq tablet,ER particles/crystals 10 meq PO BID RF: 0 memantine 10 mg tablet 10 mg PO BID RF: 0 Myrbetriq 50 mg tablet extended release 24 hr 50 mg PO DAILY RF: 0 Changed metoprolol tartrate 75 mg Tablet 100 mg PO BID Qty: 0 RF: 0 Discontinued lisinopril 10 mg tablet 10 mg PO DAILY RF: 0 Referrals / Follow Up: Aldair Blankenship DO [Primary Care Provider] - Darryl Martinez MD [STAFF PHYSICIAN] - (Follow-up in 1 week. Call to schedule an appointment.) Ramy Rios MD [STAFF PHYSICIAN] - (Follow-up in 10 days. Please call to s deyanirale an appointment. ) Disposition Disposition (needs filled in before D/C Order can be placed): [facility]
--- NOTE | 2021-05-28 10:14 | DS.PCM_ITS ---
Providers Date of Admission: 05/22/21 Primary Care Physician: Dr. Aldair Blankenship, DO Consultations 05/22/21 16:31 Consult: Cardiology Routine Consulting Provider: Darryl Martinez Reason for Consult: Afib RVR EMERGENT Consult: No Notified: Yes Date Notified: 05/22/21 Time Notified: 16:31 Method of Notification: telephone 05/22/21 16:50 Consult: Cardiology Routine Consulting Provider: Draryl Martinez Reason for Consult: afib RVR EMERGENT Consult: No Notified: Yes Date Notified: 05/22/21 Time Notified: 16:50 Method of Notification: Verbal Reason For Visit: SBO, ABDOMINAL PAIN Diagnosis Discharge Diagnosis (1) Chronic atrial fibrillation with RVR: Status: Chronic Code(s): I48.20 - Chronic atrial fibrillation, unspecified Medications at Discharge Home Medications Myrbetriq 50 mg PO DAILY 05/21/21 acetaminophen 1,000 mg PO TID 05/21/21 clopidogrel [Plavix] 75 mg PO DAILY 05/21/21 fluticasone propionate [Flonase Allergy Relief] 2 spray INTRANASAL DAILY 05/21/21 furosemide 20 mg PO DAILY 05/21/21 levothyroxine 100 mcg PO DAILY 05/21/21 melatonin 3 mg PO QHS 05/21/21 memantine 10 mg PO BID 05/21/21 potassium chloride 10 meq PO BID 05/21/21 warfarin 2.5 mg PO QHS 05/21/21 metoprolol tartrate 100 mg PO BID #0 tab 05/28/21 Hospital Course Procedures 2-D Echocardiogram Summary of Care Provided Minutes Spent on Discharge: 35 Hospital Course: Patient is a 76 y/o F who presented from [facility] with a complaint of abdominal pain. Patient has a history of dementia and so history provided was limited. A CT scan of the abdomen/pelvis in the ED demonstrated a small bowel obstruction with transition zone in the mid jejunum and possible small bowel intussusception. NG tube was placed and small bowel follow-through was ordered for the following day. Medicine was consulted to assist with medical comorbidities. Patient was noted to develop A Flutter not controlled by amiodarone and CCB. On 05/22, cardiology was consulted for management. Patient was placed on IV amiodarone. ECHO was performed which demonstrated preserved LV function. She was also placed on a Heparin drip. Cardi ology to consider DCCV as an outpatient once clinically stable. Patient continued to have hypoactive bowel sounds with no flatus or bowel movements. A small bowel follow-through was obtained on 05/26 which demonstrated ileus pattern. Patient started passing flatus on 05/27 and had multiple bowel mov ements. NG tube was removed. Clear liquid diet was initiated and tolerated well. Upon discharge, patient denies abdominal pain. She is tolerating a transitional diet. She is having bowel movements. She denies chest pain, shortness of breath, fever. Physical Exam Const alert, oriented x3 and no apparent distress Resp normal respiratory effort and clear to auscultation bilaterally GI normal to inspection, nondistended, normoactive bowel sounds Inspection: central obesity Weight / BMI Weight Weight: 262 lb 5.601 oz Body Mass Index (BMI) 51.5 ABG / Lab / Microbiology Data Result Diagrams: 05/26/21 16:35 05/28/21 04:36 Laboratory: Laboratory Results - last 24 hr 05/28/21 04:36: Sodium 141, Potassium 3.2 L, Chloride 110 H, Carbon Dioxide 24.0, Anion Gap 7, BUN 11, Creatinine 0.56, Estim Creat Clear Calc 92.72, Est GFR (MDRD) Af Amer 137, Est GFR (MDRD) Non-Af 113, BUN/Creatinine Ratio 19.7, Glucose 114 H, Calcium 8.1 L, Phosphorus 2.7, Magnesium 1.9 Microbiology: Microbiology 05/25/21 18:40 Nasal Secretion SARS-CoV-2 Antigen (Rapid) - Final D/C Instructions Discharge Diet: Light diet - advance as tolerated Discharge Activity: Return to Normal Activity Please Follow Up With: Mynor Chou MD When: 1 week Meaningful Use Info Meaningful Use Diagnoses (Choose all that apply): None applicable Discharge Plan Admission Admit Date/Time: 05/22/21 08:12 Primary Reason for Your Visit: Small bowel obstruction Attending Provider: Ramy Rios Primary Care Provider: Aldair Blankenship Consulting Providers: Darryl Martinez Discharge Orders/Prescriptions Prescriptions: Continued warfarin 2.5 mg Tablet 2.5 mg PO QHS RF: 0 melatonin 3 mg Tablet 3 mg PO QHS RF: 0 clopidogrel [Plavix] 75 mg tablet 75 mg PO DAILY RF: 0 acetaminophen 500 mg Tablet 1,000 mg PO TID RF: 0 levothyroxine 100 mcg tablet 100 mcg PO DAILY RF: 0 furosemide 20 mg tablet 20 mg PO DAILY RF: 0 fluticasone propionate [Flonase Allergy Relief] 50 mcg/actuation spray,suspension 2 spray INTRANASAL DAILY RF: 0 potassium chloride 10 mEq tablet,ER particles/crystals 10 meq PO BID RF: 0 memantine 10 mg tablet 10 mg PO BID RF: 0 Myrbetriq 50 mg tablet extended release 24 hr 50 mg PO DAILY RF: 0 Changed metoprolol tartrate 75 mg Tablet 100 mg PO BID Qty: 0 RF: 0 Discontinued lisinopril 10 mg tablet 10 mg PO DAILY RF: 0 Referrals / Follow Up: Aldair Blankenship DO [Primary Care Provider] - Darryl Martinez MD [STAFF PHYSICIAN] - (Follow-up in 1 week. Call to schedule an appointment.) Ramy Rios MD [STAFF PHYSICIAN] - (Follow-up in 10 days. Please call to schedule an appointment. ) Disposition Disposition (needs filled in before D/C Order can be placed): [facility]
[2021-05-28] MEDS: Potassium Chloride Oral Tablet 20 MEQ 40 MEQ PO (10:55)
[2021-05-28] MEDS: Pantoprazole Sodium 40 MG Tablet PO (10:55)
--- NOTE | 2021-05-28 11:52 | CASEMGMT ---
FRANK arranged for patient to get picked up at 230p via cot. SW faxed orders, negative COVID, and cotton picker time to [facility]. FRANK notified RN, school attendance secretary, left a message for patient's son. FRANK also called Jeff at [facility] and updated him. All in agreement with discharge plan. Plan: d/c back to [facility] under skilled level of care. [facility] transported via cot. Rosey GARCIA
--- NOTE | 2021-05-28 14:03 | PHA.DC.MR ---
Pharmacy Service has performed discharge medication reconciliation for this patient. The patient's discharge medication list was reviewed for discrepancies and discrepancies were resolved. Home Medications Myrbetriq 50 mg PO DAILY 05/21/21 acetaminophen 1,000 mg PO TID 05/21/21 clopidogrel [Plavix] 75 mg PO DAILY 05/21/21 fluticasone propionate [Flonase Allergy Relief] 2 spray INTRANASAL DAILY 05/21/21 furosemide 20 mg PO DAILY 05/21/21 levothyroxine 100 mcg PO DAILY 05/21/21 melatonin 3 mg PO QHS 05/21/21 memantine 10 mg PO BID 05/21/21 potassium chloride 10 meq PO BID 05/21/21 warfarin 2.5 mg PO QHS 05/21/21 metoprolol tartrate 100 mg PO BID #0 tab 05/28/21
--- NOTE | 2021-05-28 14:39 | NURSING ---
conradot called to Mary Jane at [facility] states do not give flu vaccine they want to give it to her when she comes back
== END 2021-05-28 15:11 | disposition skilled nursing facility (03) | DRG 389 ==
LOC: ED 15:06 → MS3 05-22 08:08 → PCU 05-22 12:04
PROVIDERS: Family Medicine; Internal Medicine Interventional Cardiology; Physician Assistant; Admitting Provider Surgery; Emergency Provider Emergency Medicine; PCP Family Medicine; Visit Provider Surgery
DX: K56.601 Complete intestinal obstruction, unspecified as to cause (principal); I48.20 Chronic atrial fibrillation, unspecified; I48.92 Unspecified atrial flutter; Z68.43 Body mass index [BMI] 50.0-59.9, adult; K56.1 Intussusception; K56.7 Ileus, unspecified; K21.9 Gastro-esophageal reflux disease without esophagitis; E03.9 Hypothyroidism, unspecified; E87.6 Hypokalemia; E87.8 Other disorders of electrolyte and fluid balance, not elsewhere classified; E78.5 Hyperlipidemia, unspecified; E66.01 Morbid (severe) obesity due to excess calories; G47.30 Sleep apnea, unspecified; G30.9 Alzheimer's disease, unspecified; F02.80 Dementia in other diseases classified elsewhere, unspecified severity, without behavioral disturbance, psychotic disturbance, mood disturbance, and anxiety; Z79.01 Long term (current) use of anticoagulants; Z79.02 Long term (current) use of antithrombotics/antiplatelets; Z79.890 Hormone replacement therapy; Z79.899 Other long term (current) drug therapy
CPT/HCPCS: 36415; 71045; 74018; 74177; 74250; 80048; 80053; 81001; 82962; 83605; 83690; 83735; 84100; 84443; 84484; 85025; 85610; 85730; 87426; 93005; 93306; 97110; 97162; 97166; 97530; 97535; 97802; 97803; 99285; J7030; J7040; J7120; Q9957; Q9967; A4216; C8929; J2405